=== PATIENT | female | born 1990 | race Caucasian/White ===

== ENCOUNTER → 2020-09-26 08:44 | Outpatient (BNVA) | payer MEDICAID, SELFPAY | PROVIDERS: PCP Internal Medicine; Referring Provider Internal Medicine; Visit Provider Internal Medicine Gastroenterology | DX: K31.84 Gastroparesis (principal); K21.9 Gastro-esophageal reflux disease without esophagitis; R11.0 Nausea; Z79.899 Other long term (current) drug therapy | CPT/HCPCS: 99212 ==

== ENCOUNTER → 2020-11-21 08:24 | Outpatient (BNVA) | payer MEDICAID, SELFPAY | PROVIDERS: PCP Internal Medicine; Visit Provider Internal Medicine Gastroenterology | DX: Z76.89 Persons encountering health services in other specified circumstances (principal) ==

== ENCOUNTER → 2021-01-05 08:47 | Outpatient (BNVA) | payer MEDICAID, SELFPAY | PROVIDERS: PCP Internal Medicine; Visit Provider Internal Medicine Gastroenterology ==

== ENCOUNTER 2021-04-28 11:37 | Outpatient (REF) | payer MEDICAID, SELFPAY ==
--- NOTE | ~2021-04-28 | XR_ITS ---
EXAMINATION: XR FOOT, LEFT CLINICAL INFORMATION: Pain in toes. COMPARISON: None TECHNIQUE: AP, lateral, and oblique views of the left foot. FINDINGS: The bones and soft tissues are normal. No fracture. Alignment is anatomic. Joint spaces are maintained. XR/XR foot LT min 3V IMPRESSION: Normal left foot.
== END 2021-04-28 11:38 | disposition home or self-care (01) ==
LOC: HO.XRAY 11:37
PROVIDERS: PCP Internal Medicine; Visit Provider Internal Medicine
DX: M79.675 Pain in left toe(s) (principal); L60.1 Onycholysis
CPT/HCPCS: 73630

== ENCOUNTER → 2021-07-13 08:42 | Outpatient (BNVA) | payer MEDICAID, SELFPAY | PROVIDERS: PCP Internal Medicine; Visit Provider Internal Medicine Gastroenterology ==

== ENCOUNTER → 2022-04-19 08:33 | Outpatient (BNVA) | payer MEDICAID, SELFPAY | PROVIDERS: PCP Internal Medicine; Visit Provider Internal Medicine Gastroenterology | DX: K21.9 Gastro-esophageal reflux disease without esophagitis (principal) ==

== ENCOUNTER 2022-08-30 11:45 | Outpatient (REF) | payer MEDICAID, SELFPAY ==
[2022-08-30 12:17] LABS: MANUAL DIFF FLAG NO
[2022-08-30 12:38] LABS: Basophils Percent Auto 0.5 % (0-2); Eosinophils Absolute Auto 0.1 X10*3/uL (0.0-0.4); Eosinophils Percent Auto 1.4 % (0-4); Hematocrit 42.4 % (37.0-47.0); Hemoglobin 13.5 g/dl (12.0-16.0); Imm Gran Abs Auto 0.03 X10*3/uL (0.00-0.03); Imm Gran Pct Auto 0.4 % (0.0-0.4); Lymphocytes Absolute Auto 2.5 X10*3/uL (1.2-4.9); Lymphocytes Percent Auto 33.5 % (20-40); Mean Corpuscular HGB Conc 31.8 g/dl (31.0-35.0); Mean Corpuscular Hemoglobin 27.8 pg (27.0-33.0); Mean Corpuscular Volume 87.2 fL (80.0-98.0); Mean Platelet Volume 10.5 fL (9.4-12.3); Monocytes Absolute Auto 0.5 X10*3/uL (0.1-1.2); Monocytes Percent Auto 6.2 % (2-11); Neutrophils Absolute Auto 4.3 x10*3/uL (2.0-8.3); Platelet Count 355 X10*3/uL (160-400); Red Blood Count 4.86 X10*6/uL (4.20-5.50); Red Cell Distribution Width 13.5 % (11.0-16.0); White Blood Count 7.4 X10*3/uL (4.8-10.8)
[2022-08-30 12:45] LABS: Appearance Urine Cloudy; Color Urine Dark Yellow; Glucose Urine UA Negative (Negative); Leukocyte Esterase Urine Moderate (2+) (Negative); Nitrite Urine Negative (Negative); PH 6.5 (5.0-9.0); Specific Gravity - Urine 1.025 (1.005-1.025); UMIC TRIGGER UACC YES; Urine Blood Negative (Negative); Urine Ketones Trace mg/dL (Negative); Urine Protein Trace mg/dL (Neg-Trace)
[2022-08-30 12:50] LABS: Immature Retic Fraction 21.3 % (3.0-15.9); Retic HGB Equivalent 34.5 pg (30.0-35.0); Reticulocytes Absolute 0.097 X10*6/uL (0.026-0.095)
[2022-08-30 12:51] LABS: Bacteria Urine 2+ (None Seen); Hyaline Casts Urine 0-2 /LPF (0-2); UACC Culture Trigger YES; WBC Urine 21-50 /HPF (0-5)
[2022-08-30 13:09] LABS: Anion Gap 14 (12-20); Blood Urea Nitrogen 8 mg/dL (9-16); Calcium 9.5 mg/dL (8.4-10.2); Carbon Dioxide 23 mmol/L (22-29); Chloride 106 mmol/L (96-108); Estimated Glomerular Filt Rate > 60; Glucose Random 93 mg/dL (60-115); Potassium 4.3 mmol/L (3.3-5.1); Sodium 139 mmol/L (135-145)
[2022-08-30 13:14] LABS: Alanine Aminotransferase 20 U/L (0-31); Albumin Level 4.8 g/dL (3.5-5.0); Alkaline Phosphatase 62 U/L (39-117); Anion Gap 15 (12-20); Aspartate Amino Transferase 19 U/L (5-31); Bilirubin Total 0.3 mg/dL (0.0-1.0); Blood Urea Nitrogen 8 mg/dL (9-16); Calcium 9.4 mg/dL (8.4-10.2); Carbon Dioxide 21 mmol/L (22-29); Chloride 106 mmol/L (96-108); Estimated Glomerular Filt Rate > 60; Glucose Random 93 mg/dL (60-115); Iron 54 mcg/dL (30-160); Percent Iron Saturation 14 % (15-50); Potassium 4.3 mmol/L (3.3-5.1); Sodium 138 mmol/L (135-145); Total Iron Binding Capacity 392 mcg/dL (228-428); Total Protein 8.1 g/dL (6.5-8.0); Unsaturated Iron Binding 338 ug/dL
[2022-08-30 13:17] LABS: Ferritin 24 ng/mL (10-122); Vitamin D 25-OH Total 22.9 ng/mL (>30)
[2022-08-30 14:04] LABS: Folate 14.9 ng/mL (> or = 4.0); Vitamin B12 842 pg/mL (200-900)
== END 2022-08-30 11:46 | disposition home or self-care (01) ==
LOC: HO.LAB 11:45
PROVIDERS: Absent Provider Internal Medicine; Visit Provider Internal Medicine Gastroenterology
DX: D50.9 Iron deficiency anemia, unspecified (principal)
CPT/HCPCS: 36415; 80048; 80053; 81001; 82306; 82607; 82728; 82746; 83540; 85025; 85045; 87086; 99212

== ENCOUNTER 2022-11-22 09:54 | Outpatient (REF) | payer MEDICAID, SELFPAY ==
[2022-11-22 12:38] LABS: Estimated Average Glucose 94 mg/dL; Hemoglobin A1c % 4.9 %
[2022-11-22 13:08] LABS: Appearance Urine Cloudy; Color Urine Yellow; Glucose Urine UA Negative (Negative); Leukocyte Esterase Urine Moderate (2+) (Negative); Nitrite Urine Negative (Negative); PH 5.5 (5.0-9.0); Specific Gravity - Urine 1.015 (1.005-1.025); UMIC TRIGGER UA YES; Urine Blood Trace (Negative); Urine Ketones Negative (Negative); Urine Protein Negative (Neg-Trace)
[2022-11-22 13:19] LABS: Anion Gap 13 (12-20); Blood Urea Nitrogen 15 mg/dL (9-16); Calcium 9.5 mg/dL (8.4-10.2); Carbon Dioxide 26 mmol/L (22-29); Chloride 105 mmol/L (96-108); Estimated Glomerular Filt Rate > 60; Glucose Fasting 87 mg/dL (60-99); Insulin 11 uU/mL (2-29); Potassium 4.6 mmol/L (3.3-5.1); Sodium 139 mmol/L (135-145)
[2022-11-22 13:20] LABS: Bacteria Urine 2+ (None Seen); Hyaline Casts Urine 0-2 /LPF (0-2); WBC Urine 21-50 /HPF (0-5)
[2022-11-23 22:43] LABS: Prolactin 4.2 ng/mL
== END 2022-11-22 09:55 | disposition home or self-care (01) ==
LOC: HO.LAB 09:54
PROVIDERS: Absent Provider Internal Medicine; PCP Internal Medicine; Visit Provider Registered Nurse Psychiatric/Mental Health
DX: R35.0 Frequency of micturition (principal); F29 Unspecified psychosis not due to a substance or known physiological condition; Z79.899 Other long term (current) drug therapy; D50.9 Iron deficiency anemia, unspecified; K31.84 Gastroparesis; R11.0 Nausea; K21.9 Gastro-esophageal reflux disease without esophagitis; K59.00 Constipation, unspecified; R10.10 Upper abdominal pain, unspecified
CPT/HCPCS: 36415; 80048; 81001; 83036; 83525; 84146; 99212

== ENCOUNTER 2022-12-12 09:52 | Outpatient (REF) | payer MEDICAID, SELFPAY ==
--- NOTE | ~2022-12-12 | US_ITS ---
EXAMINATION: US ABDOMEN COMPLETE CLINICAL INFORMATION: Abdominal pain. COMPARISON: None TECHNIQUE: Real-time imaging of the abdominal viscera. FINDINGS: PANCREAS: Largely obscured by overlapping bowel gas. ABDOMINAL AORTA: The proximal, mid, and distal segments are normal in caliber. INFERIOR VENA CAVA: Visualized portions are normal. LIVER: There is diffuse increased liver parenchymal echogenicity. No focal hepatic mass is seen. The liver is normal in size and contour. No biliary ductal dilatation. GALLBLADDER: Normal. The gallbladder is physiologically distended without evidence of stones, sludge, polyps, wall thickening or pericholecystic fluid. COMMON BILE DUCT: Normal in caliber measuring 0.25 cm in diameter. RIGHT KIDNEY: Normal. No hydronephrosis. No renal calculi or focal parenchymal lesions. The kidney measures 11.1 cm in maximum dimension. LEFT KIDNEY: Normal. No hydronephrosis. No renal calculi or focal parenchymal lesions. The kidney measures 9.8 cm in maximum dimension. SPLEEN: Normal. The spleen measures 10.6 cm in maximum dimension. FREE FLUID: None. US/US abdomen complete IMPRESSION: 1. There is generalized increase in hepatic echotexture, consistent with fatty infiltration or hepatocellular disease. Please correlate clinically. No focal hepatic mass or intrahepatic biliary dilatation is seen. 2. Technically limited ultrasound examination of the pancreas.
== END 2022-12-12 09:53 | disposition home or self-care (01) ==
LOC: HO.HMGCX 09:52
PROVIDERS: PCP Internal Medicine; Visit Provider Internal Medicine Gastroenterology
DX: R10.10 Upper abdominal pain, unspecified (principal)
CPT/HCPCS: 76700

== ENCOUNTER 2023-03-07 09:16 | Outpatient (REF) | payer MEDICAID, SELFPAY ==
[2023-03-07 10:42] LABS: FIT Int Ctl YES; FIT1 NEGATIVE (NEGATIVE)
== END 2023-03-07 09:17 | disposition home or self-care (01) ==
LOC: HO.LNP 09:16
PROVIDERS: Visit Provider Internal Medicine Gastroenterology
DX: R10.10 Upper abdominal pain, unspecified (principal); K59.00 Constipation, unspecified; D50.9 Iron deficiency anemia, unspecified
CPT/HCPCS: 82274; 99212

== ENCOUNTER 2023-03-20 10:25 | Day surgery (SDC) | payer MEDICAID, SELFPAY ==
--- NOTE | 2023-03-19 12:16 | HO.ANESPROP2 ---
Documented by User: Cami Aponte NP 03/19/23 12:16 HPI - Anesthesia Eval Consult details Narrative: 32yo F for Upper Endoscopy with Balloon Dilitation, Sigmoidoscopy Flexible PMFSH Active Problems Active Problems: All Active Problems (Updated 03/15/23 @ 15:34 by Yanni Macdonald, MARQUIS) Nausea (Acute) Iron deficiency anemia (Acute) Constipation (Acute) Upper abdominal pain (Acute) Dysuria (Acute) Asthma (Acute) Gastroparesis (Acute) GERD without esophagitis (Acute) Anxiety (Acute) Depression (Acute) Environmental allergies (Acute) Past Medical History Medical History Anxiety Asthma Depression Environmental allergies Gastroparesis GERD without esophagitis Family History Family History (Updated 03/07/23 @ 12:07 by Imelda Bustos) Father Alive and well Mother Alive and well Paternal Uncle Esophageal and gastric varices Esophageal cancer Surgical History Surgical History Hx of breast biopsy Hx of breast reconstruction Hx of esophagogastroduodenoscopy Social History Social History Household Members: Family Alcohol intake: never Patient Tobacco Use Status: Never used Tobacco Use of substances other than those prescribed or required for medical reasons: No Are you DNR?: No Advance Directives: No Advance Directives Information Provided: Yes Current occupational status: unemployed Meds Allergies Allergy/AdvReac Type Severity Reaction Status Date / Time Sulfa (Sulfonamide Allergy Unknown muscle Verified 03/19/23 12:45 Antibiotics) aches, dizziness, high fever Home Medications Medication Instructions Recorded Confirmed Last Taken Type benztropine 0.5 mg tablet 0.5 mg PO DAILY 09/26/20 03/15/23 Unknown History clonidine HCl 0.1 mg tablet 0.1 mg PO BEDTIME 09/26/20 03/15/23 Unknown History quetiapine 400 mg tablet,extended 400 mg PO QPM 09/26/20 03/15/23 Unknown History release 24 hr (Seroquel XR) ferrous sulfate 325 mg (65 mg 325 mg PO DAILY 08/30/22 03/15/23 Unknown History iron) tablet Exam Exam Date and Time: March 19, 2023 1216 Pertinent Lab Results Pertinent Lab Results: Laboratory Tests 08/30/22 11/22/22 12:16 11:38 WBC 7.4 Hgb 13.5 Hct 42.4 Plt Count 355 Sodium 139 Potassium 4.6 Chloride 105 Carbon Dioxide 26 BUN 15 Creatinine 0.76 Assessment and Plan Assessment Anesthesia Assessment: Chart Reviewed Documented by User: Xenia Paul MD 03/20/23 12:16 PMFSH Past Medical History Medical History Anxiety Asthma Depression Environmental allergies Gastroparesis GERD without esophagitis Family History Family History (Updated 03/07/23 @ 12:07 by Imelda Bustos) Father Alive and well Mother Alive and well Paternal Uncle Esophageal and gastric varices Esophageal cancer Family history of problems with anesthesia: No Surgical History Surgical History Hx of breast biopsy Hx of breast reconstruction Hx of esophagogastroduodenoscopy History of Problems with Anesthesia: No Social History Social History Household Members: Family Alcohol intake: never Patient Tobacco Use Status: Never used Tobacco Use of substances other than those prescribed or required for medical reasons: No Are you DNR?: No Advance Directives: No Advance Directives Information Provided: Yes Current occupational status: unemployed Meds Allergies Allergy/AdvReac Type Severity Reaction Status Date / Time Sulfa (Sulfonamide Allergy Unknown muscle Verified 03/19/23 12:45 Antibiotics) aches, dizziness, high fever Home Medications Medication Instructions Recorded Confirmed Last Taken Type benztropine 0.5 mg tablet 0.5 mg PO DAILY 09/26/20 03/15/23 Unknown History clonidine HCl 0.1 mg tablet 0.1 mg PO BEDTIME 09/26/20 03/15/23 Unknown History quetiapine 400 mg tablet,extended 400 mg PO QPM 09/26/20 03/15/23 Unknown History release 24 hr (Seroquel XR) ferrous sulfate 325 mg (65 mg 325 mg PO DAILY 08/30/22 03/15/23 Unknown History iron) tablet Exam Airway Mallampati Class: II TM Dist: >3cm Neck ROM: Full Heart: irrr Lungs: cta Assessment and Plan Assessment Anesthesia Assessment: Anesthesia Plan Discussed Final Anesthetic Review Family History of Problems with Anesthesia: No History of Problems with Anesthesia: No NPO: Yes ASA Class: II Final Preanesthetic Review: No Changes in Pt Med Stat, Meds/Allgs Chart Reviewed, Consent Obtained/Reviewed and Anes Risks/Benef Reviewed Patient Risk: Low Procedure Risk: Low Anesthetic Plan Anesthetic Plan: MAC: Disposition: Standard PACU
[2023-03-20 11:10] LABS: UPreg QC Valid YES; Urine Pregnancy NEGATIVE (NEGATIVE)
[2023-03-20 11:34] VITALS: BMI 25.7
[2023-03-20 11:40] VITALS: BP 118/77; PULSE 112; RESP 18; TEMP 35.8; O2SAT 99
[2023-03-20] MEDS: Lactated Ringers 1,000 ML 100 ML IVCONT (11:52)
--- NOTE | 2023-03-20 11:53 | PC.NURSE ---
IV started in right upper arm, not in groin, unable to edit.
[2023-03-20] MEDS: Sodium Phosphate,Mono-Dibasic 133 ML ENEMA PR ×2 (11:55→12:16)
--- NOTE | 2023-03-20 12:01 | MHC.SHP ---
Pre-Procedural Eval Section A Date of Service: 03/20/23 The patient is an INPATIENT: No Changes since office visit: Yes Patient answered all questions; No Cold of Flu in the past 2 weeks, No New Medical Problems and No Changes in Medication The History & Physical has been completed within 30 days and I have reviewed it.: Yes Section B Chief Complaint: Upper abdominal pain, constipation Allergies: Allergies Allergy/AdvReac Type Severity Reaction Status Date / Time Sulfa (Sulfonamide Allergy Unknown muscle Verified 03/19/23 12:45 Antibiotics) aches, dizziness, high fever Plan I have reviewed the history and physical and performed a pertinent physical examination on my patient. No changes have occurred unless specified. Time Spent With Patient Time: Total time managing care of this patient today ____ minutes.
--- NOTE | 2023-03-20 12:36 | W.PM.OPN ---
Operative Note Operative Note Date of Service: 03/20/23 Narrative: FLEXIBLE TRANSORAL UPPER GASTROINTESTINAL ENDOSCOPY WITH BIOPSIES, PYLORIC BALLOON DILATION AND BOTOX INJECTION AND FLEXIBLE SIGMOIDOSCOPY TILL 35 CMS Pre-op diagnosis: Abdominal pain, gastroparesis, rectal bleeding Post-op diagnosis: Gastritis, gastric polyps, gastroparesis.? Endoscopist:? Moira Lang MD Anesthesia:?MAC UPPER ENDOSCOPY Consent: Indications for the procedure and potential complications of bleeding, perforation, reaction to medications and missed diagnosis were discussed with the patient and informed consent was obtained. Instrument: Olympus GIF H 190 mid size upper endoscope Monitoring: Vital signs and clinical assessment, continuous EKG monitoring, Pulse oximetry, Carbon Dioxide monitoring and blood pressure monitoring were done throughout the procedure. Procedure: The patient was placed in the left lateral decubitis position and pre-procedure medications were administered and a bite block was placed. The endoscope was inserted into the mouth and advanced under direct vision to the third part of duodenum. A careful inspection was made as the upper endoscope was withdrawn including a retroflexed examination of the proximal stomach; Findings and interventions are described below. Findings: Larynx: Normal Esophagus: GE junction at 33 cms. No esophagitis or Carey's. Stomach: A 4-5 mm benign appearing polyp in the gastric body - biopsied. Mild gastric erythema. Biopsies were obtained. Balloon dilation of pylorus was performed with an 18 mm CRE balloon x 60 seconds. Botox 100 Units was injected in the pyloric sphincter (25 units in each quadrant) Grade 2 flap valve on retroflexed examination of the cardia. Duodenum: Normal bulb and descending duodenum. Biopsies were obtained from 3rd part of the duodenum to check for celiac sprue. Intervention: Biopsies as noted above FLEXIBLE SIGMOIDOSCOPY PROCEDURE NOTE Consent: Indications for the procedure and potential complications of bleeding, perforation, reaction to medications and missed diagnosis were discussed with the patient and informed consent was obtained. Instrument: Olympus PCF H 190 L variable stiffness pediatric colonoscope Monitoring: Vital signs and clinical assessment, intermittent blood pressure monitoring, continuous EKG monitoring, Pulse oximetry and Carbon Dioxide monitoring were done throughout the procedure. Procedure: The patient was placed in the left lateral decubitis position and pre-procedure medications were administered. After a digital rectal examination of the ano-rectum, the video colonoscope was inserted into the rectum and advanced to 35 cms into the sigmoid colon. The colonoscope was slowly withdrawn in a retrograde panoramic fashion and the colon mucosa was carefully examined including a retroflexed view of the rectum. Findings and interventions are described below. Findings: Sigmoid Colon: A 2 cms sessile (adenomatous appearing) polyp at 35 cms. Two 12 to 15 mm sessile polyps at 30 cms Rectum: Normal Ano-rectum: Moderate non-bleeding internal hemorrhoids Colon preparation: Excellent Impression and Post Procedure Diagnosis: Endoscopy Findings: STOMACH: Mild gastric erythema and a benign appearing gastric polyp. Balloon dilation of pylorus was performed with an 18 mm CRE balloon x 60 seconds. Botox 100 Units was injected in the pyloric sphincter (25 units in each quadrant) DUODENUM: Normal - biopsied to check for celiac sprue Colonoscopy Findings: Three medium sized polyps in the sigmoid colon - not removed since pt was not prepped. Moderate hemorrhoids on retroflexed exam. Plan: Await pathology results Patient has an appointment on 05/09/23 in the GI Clinic with Moira Lang M.D. Pt will be scheduled for a full colonoscopy for removal of colon polyps. Above findings were reviewed with the patient and colon polyps and handouts were given in the discharge area BIOPSIES SHOWED: A.? Small bowel, biopsy:? Small bowel mucosa with preserved villi and no specific change; no evidence of celiac disease. B.? Gastric antrum, biopsy:? Gastric antral mucosa with congestion and minimal chronic inactive gastritis; negative for H pylori, intestinal metaplasia and dysplasia. C. Gastric polyp:? Fundic gland polyp with minimal chronic inactive gastritis; negative for H pylori, intestinal metaplasia and dysplasia.?
--- NOTE | 2023-03-20 12:37 | PC.NURSE ---
fleets x2 results solid brown
--- NOTE | 2023-03-20 13:21 | P.CONAN_ITS ---
HPI - Anesthesia Eval Consult details Narrative: gerd screening [facility] Active Problems Active Problems: All Active Problems (Updated 03/15/23 @ 15:34 by Yanni Macdonald, MARQUIS) Nausea (Acute) Iron deficiency anemia (Acute) Constipation (Acute) Upper abdominal pain (Acute) Dysuria (Acute) Asthma (Acute) Gastroparesis (Acute) GERD without esophagitis (Acute) Anxiety (Acute) Depression (Acute) Environmental allergies (Acute) Past Medical History Medical History Anxiety Asthma Depression Environmental allergies Gastroparesis GERD without esophagitis Family History Family History (Updated 03/07/23 @ 12:07 by Imelda Bustos) Father Alive and well Mother Alive and well Paternal Uncle Esophageal and gastric varices Esophageal cancer Family history of problems with anesthesia: No Surgical History Surgical History Hx of breast biopsy Hx of breast reconstruction Hx of esophagogastroduodenoscopy History of Problems with Anesthesia: No Social History Social History Household Members: Family Alcohol intake: never Patient Tobacco Use Status: Never used Tobacco Use of substances other than those prescribed or required for medical reasons: No Are you DNR?: No Advance Directives: No Advance Directives Information Provided: Yes Current occupational status: unemployed Meds Allergies Allergy/AdvReac Type Severity Reaction Status Date / Time Sulfa (Sulfonamide Allergy Unknown muscle Verified 03/19/23 12:45 Antibiotics) aches, dizziness, high fever Active Medications: Current Medications Albuterol Sulfate (Albuterol Sulfate (0.083%) 2.5 Mg/3 Ml Vial.Neb) 2.5 mg INHALE ONCE PRN PRN Reason: Shortness of Breath/Wheezing Lactated Ringer's (Lr) 1,000 mls @ 100 mls/hr IVCONT .Q10H RAFITA Last Admin: 03/20/23 11:52 Dose: 100 mls/hr Sodium Biphosphate/Sodium Phosphate (Sodium Phosphate,Arenac-Dibasic 133 Ml Enema) 133 ml UT ONCE PRN PRN Reason: Pre-Op Surgical Prep Last Admin: 03/20/23 11:55 Dose: 133 ml Sodium Biphosphate/Sodium Phosphate (Sodium Phosphate,Arenac-Dibasic 133 Ml Enema) 133 ml UT ONCE PRN PRN Reason: Pre-Op Surgical Prep Last Admin: 03/20/23 12:16 Dose: 133 ml Home Medications Medication Instructions Recorded Confirmed Last Taken Type benztropine 0.5 mg tablet 0.5 mg PO DAILY 09/26/20 03/15/23 Unknown History clonidine HCl 0.1 mg tablet 0.1 mg PO BEDTIME 09/26/20 03/15/23 Unknown History quetiapine 400 mg tablet,extended 400 mg PO QPM 09/26/20 03/15/23 Unknown History release 24 hr (Seroquel XR) ferrous sulfate 325 mg (65 mg 325 mg PO DAILY 08/30/22 03/15/23 Unknown History iron) tablet Exam Exam Date and Time: March 20, 2023 1321 Height,Weight and Vital Signs: Height 5 ft 6 in Weight 72.121 kg Last Vital Signs Temp 96.4 F L 03/20/23 11:40 Pulse 112 H 03/20/23 11:40 Resp 18 03/20/23 11:40 BP 118/77 03/20/23 11:40 Pulse Ox 99 03/20/23 11:40 O2 Del Method Room Air 03/20/23 11:40 Pertinent Lab Results Pertinent Lab Results: Laboratory Tests 03/20/23 11:00 Urine Test NEGATIVE Airway Mallampati Class: I TM Dist: >3cm Neck ROM: Full Heart: rr Lungs: cta Assessment and Plan Assessment Anesthesia Assessment: Anesthesia Plan Discussed and Chart Reviewed Final Anesthetic Review Family History of Problems with Anesthesia: No History of Problems with Anesthesia: No NPO: Yes ASA Class: I and II Final Preanesthetic Review: No Changes in Pt Med Stat, Meds/Allgs Chart Reviewed, Consent Obtained/Reviewed and Anes Risks/Benef Reviewed Patient Risk: Low Procedure Risk: Low Anesthetic Plan Anesthetic Plan: MAC: Disposition: Standard PACU
[2023-03-20 13:33] VITALS: BP 104/63; PULSE 103; RESP 15; TEMP 37.5; O2SAT 99
[2023-03-20 13:48] VITALS: BP 108/67; PULSE 90; RESP 16; O2SAT 99
[2023-03-20 14:03] VITALS: BP 117/77; PULSE 87; RESP 19; O2SAT 99
[2023-03-20 14:18] VITALS: BP 125/68; PULSE 89; RESP 17; TEMP 37.1; O2SAT 99
== END 2023-03-20 15:08 | disposition home or self-care (01) ==
PROVIDERS: Nurse Practitioner; PCP Internal Medicine; Visit Provider Internal Medicine Gastroenterology
PROC: (CPT 45330; principal; 2023-03-20 11:40)
PROC: 0DJD8ZZ Inspection of Lower Intestinal Tract, Via Natural or Artificial Opening Endoscopic (ICD-10-PCS; CPT 45330; 2023-03-20 11:40)
DX: K62.5 Hemorrhage of anus and rectum (principal); K63.5 Polyp of colon; K57.30 Diverticulosis of large intestine without perforation or abscess without bleeding; K64.8 Other hemorrhoids; K59.00 Constipation, unspecified; K21.9 Gastro-esophageal reflux disease without esophagitis; R10.10 Upper abdominal pain, unspecified; D50.9 Iron deficiency anemia, unspecified; K31.84 Gastroparesis; K31.7 Polyp of stomach and duodenum; K29.50 Unspecified chronic gastritis without bleeding; J45.909 Unspecified asthma, uncomplicated; F41.1 Generalized anxiety disorder; F32.A Depression, unspecified; Z79.899 Other long term (current) drug therapy; Z88.2 Allergy status to sulfonamides
CPT/HCPCS: 45330; 43245; 43236; 43239; 81025; 88305; 88342; C1726; J0585

== ENCOUNTER → 2023-05-16 10:30 | Outpatient (BNVA) | payer MEDICAID, SELFPAY | PROVIDERS: PCP Internal Medicine; Visit Provider Internal Medicine Gastroenterology | DX: K21.9 Gastro-esophageal reflux disease without esophagitis (principal); K59.00 Constipation, unspecified; K31.84 Gastroparesis; D50.9 Iron deficiency anemia, unspecified; R11.0 Nausea | CPT/HCPCS: 99212 ==

== ENCOUNTER 2023-06-25 13:30 | Outpatient (REF) | payer MEDICAID, SELFPAY ==
[2023-06-25 18:38] LABS: CT PCR NOT DETECTED (Not Detect.); NG PCR NOT DETECTED (Not Detect.)
== END 2023-06-25 13:31 | disposition home or self-care (01) ==
LOC: HO.CHCLNP 13:30
PROVIDERS: Visit Provider Pediatrics
DX: Z01.419 Encounter for gynecological examination (general) (routine) without abnormal findings (principal)
CPT/HCPCS: 0353U; 88142

== ENCOUNTER 2023-07-15 12:32 | Day surgery (SDC) | payer MEDICAID, SELFPAY ==
--- NOTE | 2023-07-12 13:32 | HO.ANESPROP2 ---
Documented by User: Cami Aponte NP 07/12/23 13:33 HPI - Anesthesia Eval Consult details Narrative: 32yo F for Colonoscopy PMFSH Active Problems Active Problems: All Active Problems (Updated 03/15/23 @ 15:34 by Yanni Macdonald, MARQUIS) Nausea (Acute) Iron deficiency anemia (Acute) Constipation (Acute) Upper abdominal pain (Acute) Dysuria (Acute) Asthma (Acute) Gastroparesis (Acute) GERD without esophagitis (Acute) Anxiety (Acute) Depression (Acute) Environmental allergies (Acute) Past Medical History Medical History Anxiety Asthma Depression Environmental allergies Gastroparesis GERD without esophagitis Hx of flexible sigmoidoscopy Family History Family History Father Alive and well Mother Alive and well Paternal Uncle Esophageal and gastric varices Esophageal cancer Family history of problems with anesthesia: No Surgical History Surgical History Hx of breast biopsy Hx of breast reconstruction Hx of esophagogastroduodenoscopy History of Problems with Anesthesia: No Social History Social History Household Members: Family Alcohol intake: never Patient Tobacco Use Status: Never used Tobacco Are you DNR?: No Advance Directives: No Advance Directives Information Provided: Yes Nutrition Risks: No Nutritional Risk FDLMP: two weeks ago Current occupational status: unemployed Meds Allergies Allergy/AdvReac Type Severity Reaction Status Date / Time Sulfa (Sulfonamide Allergy Unknown muscle Verified 07/15/23 12:50 Antibiotics) aches, dizziness, high fever Home Medications Medication Instructions Recorded Confirmed Last Taken Type benztropine 0.5 mg tablet 0.5 mg PO DAILY 09/26/20 07/15/23 Unknown History clonidine HCl 0.1 mg tablet 0.1 mg PO BEDTIME 09/26/20 07/15/23 Unknown History quetiapine 400 mg tablet,extended 400 mg PO QPM 09/26/20 07/15/23 Unknown History release 24 hr (Seroquel XR) Exam Exam Date and Time: July 12, 2023 1332 Assessment and Plan Assessment Anesthesia Assessment: Chart Reviewed Final Anesthetic Review Family History of Problems with Anesthesia: No History of Problems with Anesthesia: No Documented by User: Deepa Rdz MD 07/15/23 14:35 PMFSH Active Problems Active Problems: All Active Problems (Updated 07/15/23 @ 13:59 by Deepa Rdz MD) Nausea (Acute) Iron deficiency anemia (Acute) Constipation (Acute) Upper abdominal pain (Acute) Dysuria (Acute) Asthma (Acute) Gastroparesis (Acute) GERD without esophagitis (Acute) Anxiety (Acute) Depression (Acute) Environmental allergies (Acute) Past Medical History Medical History Anxiety Asthma Depression Environmental allergies Gastroparesis GERD without esophagitis Hx of flexible sigmoidoscopy Family History Family History Father Alive and well Mother Alive and well Paternal Uncle Esophageal and gastric varices Esophageal cancer Surgical History Surgical History Hx of breast biopsy Hx of breast reconstruction Hx of esophagogastroduodenoscopy Social History Social History Household Members: Family Alcohol intake: never Patient Tobacco Use Status: Never used Tobacco Are you DNR?: No Advance Directives: No Advance Directives Information Provided: Yes Nutrition Risks: No Nutritional Risk FDLMP: two weeks ago Current occupational status: unemployed Meds Allergies Allergy/AdvReac Type Severity Reaction Status Date / Time Sulfa (Sulfonamide Allergy Unknown muscle Verified 07/15/23 12:50 Antibiotics) aches, dizziness, high fever Home Medications Medication Instructions Recorded Confirmed Last Taken Type benztropine 0.5 mg tablet 0.5 mg PO DAILY 09/26/20 07/15/23 Unknown History clonidine HCl 0.1 mg tablet 0.1 mg PO BEDTIME 09/26/20 07/15/23 Unknown History quetiapine 400 mg tablet,extended 400 mg PO QPM 09/26/20 07/15/23 Unknown History release 24 hr (Seroquel XR) Exam Height,Weight and Vital Signs: Height 5 ft 2 in Weight 72.575 kg Vital Signs Temp Pulse Resp BP Pulse Ox O2 Del Method 07/15/23 12:58 97.9 F 100 18 125/80 99 Room Air Pertinent Lab Results Pertinent Lab Results: Lab Results 07/15/23 Range/Units 12:15 Urine Test NEGATIVE (NEGATIVE) Airway Mallampati Class: I TM Dist: >3cm Neck ROM: Full Loose/Missing/Broken Teeth: No (Denies broken, loose or missing teeth) Heart: RRR Lungs: CTAB Assessment and Plan Assessment Anesthesia Assessment: Anesthesia Plan Discussed Final Anesthetic Review NPO: Yes ASA Class: III Final Preanesthetic Review: No Changes in Pt Med Stat, Meds/Allgs Chart Reviewed, Consent Obtained/Reviewed and Anes Risks/Benef Reviewed Patient Risk: Intermediate Procedure Risk: Low Assessment/Block/Sedation in SS: Assess/Block/Sedation-SS Anesthetic Plan Anesthetic Plan: MAC: Disposition: Standard PACU
[2023-07-15 08:37] VITALS: BMI 29.3
[2023-07-15] MEDS: Lactated Ringers 1,000 ML 100 ML IVCONT (12:57)
[2023-07-15 12:58] VITALS: BP 125/80; PULSE 100; RESP 18; TEMP 36.6; O2SAT 99
[2023-07-15 13:01] LABS: UPreg QC Valid YES; Urine Pregnancy NEGATIVE (NEGATIVE)
--- NOTE | 2023-07-15 13:34 | MHC.SHP ---
Pre-Procedural Eval Section A Date of Service: 07/15/23 The patient is an INPATIENT: No Section B Chief Complaint: polyps on flex sig Relevant Family History (Specify if Yes): Yes Relevant Social History: None Present Medications: see Short Stay Collaborative assessment Medical History: Significant History (Asthma Depression Environmental allergies Gastroparesis GERD without esophagitis) History of Previous Operations: Relevant previous surgery/procedure and date(s) (Hx of breast biopsy Hx of breast reconstruction Hx of esophagogastroduodenoscopy) Allergies: Allergies Allergy/AdvReac Type Severity Reaction Status Date / Time Sulfa (Sulfonamide Allergy Unknown muscle Verified 07/15/23 12:50 Antibiotics) aches, dizziness, high fever Review of Systems Sugical H&P ROS: Negative: Constitution, Cardiovascular, Respiratory and Gastrointestinal Exam Surgical H&P Exam: Normal: Heart, Normal: Lungs, Normal: Extremities and Normal: Abdomen Plan Diagnosis/Plan: Unchanged I have reviewed the history and physical and performed a pertinent physical examination on my patient. No changes have occurred unless specified. Time Spent With Patient Time: Total time managing care of this patient today ____ minutes.
[2023-07-15] MEDS: ondansetron HCL 4 MG/2 ML VIAL IVPUSH (14:21)
[2023-07-15] MEDS: Metoclopramide HCl 10 MG/2 ML VIAL IVPUSH (14:21)
--- NOTE | 2023-07-15 14:23 | P.OP_ITS ---
Operative Note Operative Note Date of Service: 07/15/23 Narrative: COLONOSCOPY TILL CECUM WITH SNARE POLYPECTOMY Pre-op diagnosis: Screening, polyps on flex sigmoidoscopy Post-op diagnosis:? Colon polyps, diverticulosis, hemorrhoid Endoscopist:? Moira Lang MD Anesthesia:?MAC Consent: Indications for the procedure and potential complications of bleeding, perforation, reaction to medications and missed diagnosis were discussed with the patient and informed consent was obtained. Instrument: Olympus PCF H 190 L variable stiffness pediatric colonoscope and adult variable stiffness colonoscope Monitoring: Vital signs and clinical assessment, intermittent blood pressure monitoring, continuous EKG monitoring, Pulse oximetry and Carbon Dioxide monitoring were done throughout the procedure. Please see anesthesia flowsheet. Colon withdrawl time was 25 minutes. Procedure: The patient was placed in the left lateral decubitis position and pre-procedure medications were administered. After a digital rectal examination of the ano-rectum, the video colonoscope was inserted into the rectum and advanced through the colon to the cecum. The colonoscope was slowly withdrawn in a retrograde panoramic fashion and the colon mucosa was carefully examined including a retroflexed view of the rectum. Findings and interventions are described below. Procedure Difficulty: colon was long and tortuous and there was recurrent loop formation. Patient was placed in the supine position and LLQ pressure was applied to intubate the ascending colon/cecum Findings: Terminal Ileum: Not evaluated Cecum: Normal Ascending Colon: Normal Transverse Colon: Normal Descending Colon: Normal Sigmoid Colon: A 2 cms sessile polyp at 30 cms - removed with a hot snare. Two 10-12 mm sessile polyps at 25 cms - removed with a hot snare. Some bleeding noted at 1 of the polypectomy sites - treated with cautery using the snare tip. Moderate diverticulosis Rectum: Normal Ano-rectum: Small internal hemorrhoids Colon preparation: Good Impression and Post Procedure Diagnosis: Colonoscopy Findings: Three medium sized polyps removed Moderate diverticulosis seen in the sigmoid colon Small hemorrhoids on retroflexed exam. Plan: Await pathology results Patient has an appointment on 08/01/23 in the GI Clinic with Moira Lang M.D.. Repeat Colonoscopy interval based on path results - in 3 years if polyps are adenomatous and 10 years if polyps are hyperplastic. (adult colonoscopy for future colonoscopies) Above findings were reviewed with the patient and colon polyps and diverticulosis handouts were given in the discharge area BIOPSIES SHOWED: A.? Colon, sigmoid at 30 cm, polyp:? Tubular adenoma; negative for high-grade dysplasia and carcinoma. B.? Colon, sigmoid at 25 cm, polyps:? Tubular adenomas, two; negative for high- grade dysplasia and carcinoma.
[2023-07-15 15:36] VITALS: BP 120/68; PULSE 108; RESP 16; TEMP 36.6; O2SAT 98
[2023-07-15 15:51] VITALS: BP 113/50; PULSE 95; RESP 16; O2SAT 99
[2023-07-15 15:59] VITALS: BP 108/60; PULSE 88; RESP 16; TEMP 36.8; O2SAT 99
== END 2023-07-15 16:15 | disposition home or self-care (01) ==
PROVIDERS: Nurse Practitioner; PCP Pediatrics; Visit Provider Internal Medicine Gastroenterology
PROC: 0DJD8ZZ Inspection of Lower Intestinal Tract, Via Natural or Artificial Opening Endoscopic (ICD-10-PCS; CPT 45378; principal; 2023-07-15 14:20)
DX: Z12.11 Encounter for screening for malignant neoplasm of colon (principal); Z86.010 Personal history of colon polyps; D12.5 Benign neoplasm of sigmoid colon; K57.30 Diverticulosis of large intestine without perforation or abscess without bleeding; K31.84 Gastroparesis; D50.9 Iron deficiency anemia, unspecified; K64.8 Other hemorrhoids; K21.9 Gastro-esophageal reflux disease without esophagitis; J45.909 Unspecified asthma, uncomplicated; F32.A Depression, unspecified; F41.1 Generalized anxiety disorder; Z79.899 Other long term (current) drug therapy; Z88.2 Allergy status to sulfonamides
CPT/HCPCS: 45385; 81025; 88305; J2405; J2765

== ENCOUNTER → 2023-07-15 12:32 | Outpatient (BNV) | payer MEDICAID, SELFPAY | PROVIDERS: PCP Pediatrics; Visit Provider Internal Medicine Gastroenterology | DX: Z12.11 Encounter for screening for malignant neoplasm of colon (principal); D12.5 Benign neoplasm of sigmoid colon; K57.30 Diverticulosis of large intestine without perforation or abscess without bleeding; K64.8 Other hemorrhoids | CPT/HCPCS: 45385 ==

== ENCOUNTER 2023-08-01 13:21 | Outpatient (AMB) | payer MEDICAID, SELFPAY ==
[2023-08-01 13:28] VITALS: PULSE 107; RESP 14
--- NOTE | 2023-08-01 13:28 | A.OFFVIS_ITS ---
Intake Vital Signs 08/01/23 13:28 Respiration 14 Pulse 107 H Intake Visit Reasons: S/P Waldo; Dr. Lang Intake Note: Patient follow up for Colonoscopy results. Patient cc: constipation, and low back pain, patient stop linzess because she was having BM accident, denies any other GI issues. 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 Lang HPI Details GI clinic visit for this 32-year-old female for FU of GERD and discuss colon results. Pt is a special needs person. ?CHRONIC ILLNESSES:?asthma, gastroesophageal reflux disease (GERD), environmental allergies, depression, anxiety ? IMAGING STUDIES: 12/12/22 ABD US SHOWED: 1. There is generalized increase in hepatic echotexture, consistent with fatty infiltration or hepatocellular disease. Please correlate clinically. No focal hepatic mass or intrahepatic biliary dilatation is seen. 2. Technically limited ultrasound examination of the pancreas. 03/31/20 GASTRIC EMPTYING STUDY SHOWED: ? FINDINGS: ? 1 hour 98% (normal 37%-90%) ? 2 hours 94% (normal 30%-60%) ? 3 hours 76% ? 4 hours 68% (normal 0%-10%) ENDOSCOPIC STUDIES: 07/15/23 COLONOSCOPY SHOWED: Three medium sized polyps removed Moderate diverticulosis seen in the sigmoid colon Small hemorrhoids on retroflexed exam. Plan: Repeat Colonoscopy interval based on path results - in 3 years if polyps are adenomatous and 10 years if polyps are hyperplastic. (adult colonoscopy for future colonoscopies) Above findings were reviewed with the patient and colon polyps and diverticulosis handouts were given in the discharge area BIOPSIES SHOWED: A.? Colon, sigmoid at 30 cm, polyp:? Tubular adenoma; negative for high-grade d ysplasia and carcinoma. B.? Colon, sigmoid at 25 cm, polyps:? Tubular adenomas, two; negative for high- grade dysplasia and carcinoma. 03/20/23 EGD AND FLEX SIGMOIDOSCOPY SHOWED: Endoscopy Findings: STOMACH:?Mild gastric erythema and a benign appearing gastric polyp. Balloon dilation of pylorus was performed with an 18 mm CRE balloon x 60 seconds. Botox 100 Units was injected in the pyloric sphincter (25 units in each quadrant) DUODENUM: Normal - biopsied to check for celiac sprue Colonoscopy Findings: Three medium sized polyps in the sigmoid colon - not removed since pt was not prepped. Moderate hemorrhoids on retroflexed exam. Plan:? Pt will be scheduled for a full colonoscopy for removal of colon polyps. Above findings were reviewed with the patient and colon polyps and? handouts were given in the discharge area BIOPSIES SHOWED: A.? Small bowel, biopsy:? Small bowel mucosa with preserved villi and no specific change; no evidence of celiac disease. B.? Gastric antrum, biopsy:? Gastric antral mucosa with congestion and minimal chronic inactive gastritis; negative for H pylori, intestinal metaplasia and dysplasia. C. Gastric polyp:? Fundic gland polyp with minimal chronic inactive gastritis; negative for H pylori, intestinal metaplasia and dysplasia.? EGD-12/24/[address] PRAKASH: ? Esophagus: GE junction at 35 cm. No esophagitis or Carey s. Random esophageal bx taken ? Stomach: Streaky gastric erythema at antrum. Biopsies were obtained. Grade 2 flap ? valve on retroflexed examination of the cardia. The pylorus seemed tight so it ? was stretched with 18 mm balloon, there was also retained food noted. ? Duodenum: Normal bulb and descending duodenum, bx taken ? BIOPSIES SHOWED: ? A. Duodenum, biopsies: Duodenal mucosa with no significant histopathology; no villous ? abnormality identified; no increase in intraepithelial lymphocytes. ? B. Stomach, biopsies: Gastric mucosa with moderate chronic, inactive gastritis; negative for Helicobacter pylori organisms; negative for intestinal metaplasia; negative for dysplasia. ? C. Esophagus, random, biopsies: Fragments of squamous epithelium within normal limits. ??TODAY'S VISIT Colon results reviewed. Doing well. Notes rectal bleeding when she has her periods Has constipation and notes bleeding when she strains Has small BMs with straining with incomplete evacuation Linzess was causing diarrhea and she stopped taking it - advised to take a lower dose of Linzess PAST VISIT: She noted improvement in her symptoms after EGD, botox injection and pyloric balloon dilation Had another episode of rectal bleeding 2 weeks after her procedures Willing to have a colonoscopy Has nausea and vomiting when she has migraine ALLEN Takes acetaminophen which does not help - pt advised to discuss with her PCP. Has constipation and has a BM 1-2 times a week. (sister has the same problem) Takes Linzess and Senna. Patient cc: constipation, and low back pain, patient stop linzess because she was having BM accident, denies any other GI issues. Pain is pressure like and comes and goes. Pain lasts for an hour. Medicatons help with the heartburn and not with the abdominal pain. She has been using the Linzess and kept pooping a lot of water (also had the flu that day) Has been peeing a lot - urinates every hour and thinks she has an overactive bladder. Notes some nausea and denies vomiting. Takes Senna every night and has a BM every few days and sometimes once a week. Notes some bloating. Denies any change in abd pain after a BM or passing gas. Getting hungry a lot and has been eating. She is always hungry. Has anemia due to menstrual blood loss and is used to feeling dizzy ? Intermittent painless rectal bleeding - blood is bright red. Admits to a hx of hemorrhoids. Had COVID a few months ago - breathing problems, fluid in her lungs and brain fog - recovered. Continues to have indigestion. Notes abd pain if she takes iron without food. Has a BM 1-2 times - denies hard stools or straining. Intermittent gas and bloating. Prescribed Ferrous sulfate by her PCP. Notes some indigestion and upset stomach due to iron. She was prescribed a stool softener as well. Pt denies heavy periods - her Mom reported her periods are heavy. Denies black stools or blood in stools. Intermittent constipation improved with stool softeners ? ? ? Feeling good and eating OK ? ? ? Appetite is good and weight is stable. ?? ? Denies nausea. Spoke to Ada and her step Mom. ? Medication is working but not a 100%. ? Has nausea which comes and goes. ? Thought she was getting better. ? Can have regurgitation of food. ? Tried taking heavier food and noted worsening symptoms ? Was doing a lot better with small meals. ? Taking smoothies ? Thinks she has been loosing weight and clothes. ? Weighs 145 lbs (decreased from 156 lbs in Jan 2020). ? GES results were reviewed with the patient and her stepmom. ? Having GI problems for a long time. ? Has been having recurrent post prandial nausea and an episode of vomiting a few fibres. ? Doing good. Feels symptoms are 75% better. ? Still has some nausea and abdominal pain ? Sometimes has regurgitation of food after a meal when her stomach is full. ? Can have symptoms in the middle of the day. ? Complains of early satiety. ? Has been loosing weight PFSH Medical History (Updated 08/01/23 @ 14:16 by Moira Lang MD) Anxiety Asthma Depression Environmental allergies Gastroparesis GERD without esophagitis Hx of flexible sigmoidoscopy Surgical History Hx of breast biopsy Hx of breast reconstruction Hx of colonoscopy Hx of esophagogastroduodenoscopy Family History Father Alive and well Mother Alive and well Paternal Uncle Esophageal and gastric varices Esophageal cancer Social History Household Members: Family Alcohol intake: never Patient Tobacco Use Status: Never used Tobacco Current occupational status: unemployed Review of Systems Const All systems reviewed & are unremarkable except as noted in HPI and below Physical Exam Vital Signs: BMI result Body Mass Index 28.1 Const General: healthy appearing and no acute distress Nutritional Appearance: average body habitus Orientation/consciousness: patient oriented x3 Limitations: no limitations HEENT Head: Yes normal to inspection Ears: hearing grossly normal bilaterally Eyes Sclerae: sclerae normal Pupils: Equal, round and reactive pupils present Neck Neck: Yes normal visual inspection Chest Chest palpation & inspection: normal inspection of the chest Resp Effort & Inspection: normal respiratory effort Auscultation: clear to auscultation bilaterally Cardio Palpation: normal PMI Rate: regular rate Rhythm: regular rhythm Heart sounds: S1 normal heart sound present, S2 normal heart sound present and no murmurs GI Palpation (GI): Soft to palpation, nontender and No hepatosplenomegaly present Auscultation: normal bowel sounds Rectal Exam - Female: deferred Skin General skin exam: no rashes or lesions noted Neuro General: patient oriented x3, gait normal and moves all extremities Cranial nerves: Yes Equal, round and reactive pupils present Psych Appearance: grossly normal Mental Status: mental status grossly normal Assessment & Plan Assessment & Plan (1) Nausea: Code(s): R11.0 - Nausea (2) Iron deficiency anemia: Code(s): D50.9 - Iron deficiency anemia, unspecified (3) Constipation: Code(s): K59.00 - Constipation, unspecified (4) Upper abdominal pain: Code(s): R10.10 - Upper abdominal pain, unspecified (5) Gastroparesis: Code(s): K31.84 - Gastroparesis (6) GERD without esophagitis: Code(s): K21.9 - Gastro-esophageal reflux disease without esophagitis (7) Migraine headache: Comment: Prescribed low dose Imitrex for migraine HAs Code(s): G43.909 - Migraine, unspecified, not intractable, without status migrainosus Plan 32 YF with special needs, asthma, gastroesophageal reflux disease (GERD), envi ronmental allergies, depression, anxiety followed in GI for symptoms of heartburn, early satiety and intermittent postprandial regurgitation. 12/24/19 EGD showed gastritis with a tight pylorus which was dilated with an 18 mm balloon. Small bowel and esophageal biopsies were normal. Gastric biopsies were negative for H pylori. Patient notes partial improvement in her symptoms since EGD with balloon dilation of pylorus was performed. Gastric emptying study showed Gastroparesis. Patient was advised to switch omeprazole from bedtime to 20-30 minutes before breakfast and take 5-6 small meals a day in the interim. Continue Metoclopramide 5 mg twice daily before lunch and dinner. Patient handout on gastroparesis was mailed to the patient with her after visit summary at the time of a previous visit. Pt noted increased symptoms after Thanksgiving which have improved. 11/22/22 Pt complains of intermittent upper abdominal pain. She was advised further evaluation with an abd US 03/2023 EGD with pyloric Botox injection and repeat balloon dilation was performed. (OF note - pt reports getting hungry a lot and has been eating) Same day flexible sigmoidoscopy showed adenomatous appearing polyps in the left colon (Of note stool FIT test was negative in 01/2023). To take Linzess 145 mcg every other day for constipation 07/2023 colonoscopy was performed and findings as noted above 08/01/23 Pt stopped Linzess due to diarrhea - prescribed a lower dose of 72 mcg daily Prescribed low dose Imitrex for migraine HAs Follow-up appointment in 4 months Medications: New linaclotide (Linzess) 72 mcg PO QAM 30 days 30 caps 3RF K59.09 - Other constipation cholecalciferol (vitamin D3) 250 mcg PO 2XW 90 days 26 caps 1RF E55.9 - Vitamin D deficiency, unspecified sumatriptan succinate (Imitrex) do not exceed 6 doses per 24 hrs 25 mg PO Q2-4H 60 days PRN 20 tabs 1RF migraine headache G43.909 - Migraine, unspecified, not intractable, without status migrainosus Discontinued linaclotide (Linzess) Discontinued Reason: Ancillary Entered New Order 145 mcg PO QAM 30 days 30 caps 3RF K59.00 - Constipation, unspecified Coding Level of Care Code Est Pt Level 4 (88319) Diagnoses Nausea R11.0 Iron deficiency anemia D50.9 Constipation K59.00 Upper abdominal pain R10.10 Gastroparesis K31.84 GERD without esophagitis K21.9 Migraine headache G43.909 Time Spent (min) 23
== END 2023-08-01 14:03 | disposition home or self-care (01) ==
PROVIDERS: PCP Internal Medicine; Visit Provider Internal Medicine Gastroenterology
DX: R11.0 Nausea (principal); D50.9 Iron deficiency anemia, unspecified; K59.00 Constipation, unspecified; R10.10 Upper abdominal pain, unspecified; K31.84 Gastroparesis; K21.9 Gastro-esophageal reflux disease without esophagitis; G43.909 Migraine, unspecified, not intractable, without status migrainosus
CPT/HCPCS: 99214

== ENCOUNTER → 2023-08-01 13:21 | Outpatient (BNVA) | payer MEDICAID, SELFPAY | PROVIDERS: PCP Internal Medicine; Visit Provider Internal Medicine Gastroenterology | DX: R11.0 Nausea (principal); K59.00 Constipation, unspecified; R10.10 Upper abdominal pain, unspecified; D50.9 Iron deficiency anemia, unspecified; K31.84 Gastroparesis; K21.9 Gastro-esophageal reflux disease without esophagitis; G43.909 Migraine, unspecified, not intractable, without status migrainosus | CPT/HCPCS: 99212 ==

== ENCOUNTER 2023-12-26 10:39 | Outpatient (AMB) | payer MEDICAID, SELFPAY ==
--- NOTE | 2023-12-26 10:42 | A.OFFVIS_ITS ---
Intake Vital Signs 12/26/23 10:47 12/26/23 11:27 Height 5 ft 6 in Weight 167 lb 8.821 oz BMI 27.0 BP 74/53 L 105/66 Blood Pressure Location Lt brachial Lt brachial Position Sitting Sitting Pulse 101 H Intake Visit Reasons: 4 month follow up Intake Note: Marcella presents in the office as a 4 month follow up. CC: She states that she had COVID a couple weeks ago. She states that she had a bad stomach pains and nausea and she has been okay since. She is making herself eat but something still does not feel right. Allergies Sulfa (Sulfonamide Antibiotics) Allergy (Unknown, Verified 12/26/23 10:48) muscle aches, dizziness, high fever Medication List - Last Reconciled 12/26/23 by Moira Lang MD benztropine 0.5 mg PO DAILY cholecalciferol (vitamin D3) 250 mcg PO 2XW 90 days clonidine HCl 0.1 mg PO BEDTIME hydroxyzine HCl 5 - 10 mg PO DAILY PRN linaclotide (Linzess) 72 mcg PO QAM 30 days metoclopramide HCl 5 mg PO BID 90 days omeprazole 20 mg PO BID 90 days quetiapine ER (Seroquel XR) 400 mg PO QPM sennosides-docusate sodium 8.6-50 mg (Stimulant Laxative Plus) 2 tabs PO BEDTIME sumatriptan succinate (Imitrex) 25 mg PO Q2-4H PRN 60 days HPI 4 month follow up HPI Details GI clinic visit for this 33-year-old female for FU of GERD, gastroparesis and colon polyps. Pt is a special needs person. ?CHRONIC ILLNESSES:?asthma, gastroesophageal reflux disease (GERD), environmental allergies, depression, anxiety ? IMAGING STUDIES: 12/12/22 ABD US SHOWED: 1. There is generalized increase in hepa tic echotexture, consistent with fatty infiltration or hepatocellular disease. Please correlate clinically. No focal hepatic mass or intrahepatic biliary dilatation is seen. 2. Technically limited ultrasound examin ation of the pancreas. 03/31/20 GASTRIC EMPTYING STUDY SHOWED: ? FINDINGS: ? 1 hour 98% (normal 37%-90%) ? 2 hours 94% (normal 30%-60%) ? 3 hours 76% ? 4 hours 68% (normal 0%-10%) ENDOSCOPIC STUDIES: 07/15/23 COLONOSCOPY SHOWED: Three medium sized polyps removed Moderate diverticulosis seen in the sigmoid colon Small hemorrhoids on retroflexed exam. Plan: Repeat Colonoscopy interval based on path results - in 3 years if polyps are adenomatous and 10 years if polyps are hyperplastic. (adult colonoscopy for future colonoscop ies) Above findings were reviewed with the patient and colon polyps and diverticulosis handouts were given in the discharge area BIOPSIES SHOWED: A.? Colon, sigmoid at 30 cm, polyp:? Tubular adenoma; negative for high-grade dysplasia and carcinoma. B.? Colon, sigmoid at 25 cm, polyps:? Tubular adenomas, two; negative for high-grade dysplasia and carcinoma. 03/20/23 EGD AND FLEX SIGMOIDOSCOPY SHOWE D: Endoscopy Findings: STOMACH:?Mild gastric erythema and a benign appearing gastric polyp. Balloon dilation of pylorus was performed with an 18 mm CRE balloon x 60 seconds. Botox 100 Units was injected in the pyloric sphincter (25 units in each quadrant) DUODENUM: Normal - biopsied to check for celiac sprue Colonoscopy Findings: Three medium sized polyps in the sigmoid colon - not removed since pt was not prepped. Moderate hemorrhoids on retroflexed exam. Plan:? Pt will be scheduled for a full colonoscopy for removal of colon polyps. Above findings were reviewed with the patient and colon polyps and? handouts were given in the discharge area BIOPSIES SHOWED: A.? Small bowel, biopsy:? Small bowel mucosa with preserved villi and no specific change; no evidence of celiac disease. B.? Gastric antrum, biopsy:? Gastric antral mucosa with congestion and minimal chronic inactive gastritis; negative for H pylori, intestinal metaplasia and dysplasia. C. Gastric polyp:? Fundic gland polyp with minimal chronic inactive gastritis; negative for H pylori, intestinal metaplasia and dysplasia.? EGD-12/24/[address] PRAKASH: ? Esophagus: GE junction at 35 cm. No esophagitis or Carey s. Random esophageal bx taken ? Stomach: Streaky gastric erythema at antrum. Biopsies were obtained. Grade 2 flap ? valve on retroflexed examination of the cardia. The pylorus seemed tight so it ? was stretched with 18 mm balloon, there was also retained food noted. ? Duodenum: Normal bulb and descending duodenum, bx taken ? BIOPSIES SHOWED: ? A. Duodenum, biopsies: Duodenal mucosa with no significant histopathology; no villous ? abnormality identified; no increase in intraepithelial lymphocytes. ? B. Stomach, biopsies: Gastric mucosa with moderate chronic, inactive gastritis; negative for Helicobacter pylori organisms; negative for intestinal metaplasia; negative for dysplasia. ? C. Esophagus, random, biopsies: Fragments of squamous epithelium within normal limits. ??TODAY'S VISIT Pt is accompanied by her ?patient care provider CC: She states that she had COVID a couple weeks ago. She states that she had a bad stomach pains and nausea and she has been okay since. She is making herself eat but something still does not feel right. Had COVID during tono vacation and had severe stomach ache, nausea, vomiting and diarrhea Has had chronic nausea ever since and trying to make herself eat. Has constipation since she does not drink enough fluids. Feels hungry all the time and has been snacking on carbs Has been gaining weight PAST VISIT: Colon results reviewed. Doing well. Notes rectal bleeding when she has her periods Has constipation and notes bleeding when she strains Has small BMs with straining with incomplete evacuation Linzess was causing diarrhea and she stopped taking it - advised to take a lower dose of Linzess She noted improvement in her symptoms after EGD, botox injection and pyloric balloon dilation Had another episode of rectal bleeding 2 weeks after her procedures Willing to have a colonoscopy Has nausea and vomiting when she has migraine ALLEN Takes acetaminophen which does not help - pt advised to discuss with her PCP. Has constipation and has a BM 1-2 times a week. (sister has the same problem) Takes Linzess and Senna. Patient cc: constipation, and low back pain, patient stop linzess because she was having BM accident, denies any other GI issues. Pain is pressure like and comes and goes. Pain lasts for an hour. Medicatons help with the heartburn and not with the abdominal pain. She has been using the Linzess and kept pooping a lot of water (also had the flu that day) Has been peeing a lot - urinates every hour and thinks she has an overactive bladder. Notes some nausea and denies vomiting. Takes Senna every night and has a BM every few days and sometimes once a week. Notes some bloating. Denies any change in abd pain after a BM or passing gas. Getting hungry a lot and has been eating. She is always hungry. Has anemia due to menstrual blood loss and is used to feeling dizzy ? Intermittent painless rectal bleeding - blood is bright red. Admits to a hx of hemorrhoids. Had COVID a few months ago - breathing problems, fluid in her lungs and brain fog - recovered. Continues to have indigestion. Notes abd pain if she takes iron without food. Has a BM 1-2 times - denies hard stools or straining. Intermittent gas and bloating. Prescribed Ferrous sulfate by her PCP. Notes some indigestion and upset stomach due to iron. She was prescribed a stool softener as well. Pt denies heavy periods - her Mom reported her periods are heavy. Denies black stools or blood in stools. Intermittent constipation improved with stool softeners ? ? ? Feeling good and eating OK ? ? ? Appetite is good and weight is stable. ?? ? Denies nausea. Spoke to Ada and her step Mom. ? Medication is working but not a 100%. ? Has nausea which comes and goes. ? Thought she was getting better. ? Can have regurgitation of food. ? Tried taking heavier food and noted worsening symptoms ? Was doing a lot better with small meals. ? Taking smoothies ? Thinks she has been loosing weight and clothes. ? Weighs 145 lbs (decreased from 156 lbs in Jan 2020). ? GES results were reviewed with the patient and her stepmom. ? Having GI problems for a long time. ? Has been having recurrent post prandial nausea and an episode of vomiting a few fibres. ? Doing good. Feels symptoms are 75% better. ? Still has some nausea and abdominal pain ? Sometimes has regurgitation of food after a meal when her stomach is full. ? Can have symptoms in the middle of the day. ? Complains of early satiety. ? Has been loosing weight [facility] Medical History (Updated 12/26/23 @ 11:18 by Moira Lang MD) Hx of flexible sigmoidoscopy Gastroparesis GERD without esophagitis Anxiety Depression Environmental allergies Asthma Surgical History Hx of breast biopsy Hx of breast reconstruction Hx of colonoscopy Hx of esophagogastroduodenoscopy Family History Father Alive and well Mother Alive and well Paternal Uncle Esophageal and gastric varices Esophageal cancer Social History Household Members: Family Alcohol intake: never Patient Tobacco Use Status: Never used Tobacco Current occupational status: unemployed Review of Systems Const All systems reviewed & are unremarkable except as noted in HPI and below Physical Exam Vital Signs: Last Vital Signs Pulse 101 H 12/26/23 10:47 BP 105/66 12/26/23 11:27 BMI result Body Mass Index 27.0 Const General: healthy appearing and no acute distress Nutritional Appearance: overweight Orientation/consciousness: patient oriented x3 Limitations: other limitations (Patient is a special needs person) HEENT Head: Yes normal to inspection Ears: hearing grossly normal bilaterally Eyes Sclerae: sclerae normal Pupils: Equal, round and reactive pupils present Neck Neck: Yes normal visual inspection Chest Chest palpation & inspection: normal inspection of the chest Resp Effort & Inspection: normal respiratory effort Auscultation: clear to auscultation bilaterally Cardio Palpation: normal PMI Rate: regular rate Rhythm: regular rhythm Heart sounds: S1 normal heart sound present, S2 normal heart sound present and no murmurs GI Palpation (GI): Soft to palpation, nontender and No hepatosplenomegaly present Auscultation: normal bowel sounds Rectal Exam - Female: deferred Skin General skin exam: no rashes or lesions noted Neuro General: patient oriented x3, gait normal and moves all extremities Cranial nerves: Yes Equal, round and reactive pupils present Psych Appearance: grossly normal Mental Status: mental status grossly normal Assessment & Plan Assessment & Plan (1) Nausea: Code(s): R11.0 - Nausea (2) Iron deficiency anemia: Code(s): D50.9 - Iron deficiency anemia, unspecified (3) Constipation: Code(s): K59.00 - Constipation, unspecified (4) Upper abdominal pain: Code(s): R10.10 - Upper abdominal pain, unspecified (5) Gastroparesis: Code(s): K31.84 - Gastroparesis (6) GERD without esophagitis: Code(s): K21.9 - Gastro-esophageal reflux disease without esophagitis (7) Family history of diabetes mellitus: Code(s): Z83.3 - Family history of diabetes mellitus Plan 33 YF with special needs, asthma, gastroesophageal reflux disease (GERD), environmental allergies, depression, anxiety followed in GI for symptoms of heartburn, early satiety and intermittent postprandial regurgitation. 12/24/19 EGD showed gastritis with a tight pylorus which was dilated with an 18 mm balloon. Small bowel and esophageal biopsies were normal. Gastric biopsies were negative for H pylori. Patient notes partial improvement in her symptoms since EGD with balloon dilation of pylorus was performed. Gastric emptying study showed Gastroparesis. Patient was advised to switch omeprazole from bedtime to 20-30 minutes before breakfast and take 5-6 small meals a day in the interim. Continue Metoclopramide 5 mg twice daily before lunch and dinner. Patient handout on gastroparesis was mailed to the patient with her after visit summary at the time of a previous visit. Pt noted increased symptoms after Thanksgiving which have improved. 11/22/22 Pt complains of intermittent upper abdominal pain. She was advised further evaluation with an abd US 03/2023 EGD with pyloric Botox injection and repeat balloon dilation was performed. (OF note - pt reports getting hungry a lot and has been eating) Same day flexible sigmoidoscopy showed adenomatous appearing polyps in the left colon (Of note stool FIT test was negative in 01/2023). To take Linzess 145 mcg every other day for constipation 07/2023 colonoscopy was performed and findings as noted above 08/01/23 Pt stopped Linzess due to diarrhea - prescribed a lower dose of 72 mcg daily Prescribed low dose Imitrex for migraine HAs 12/26/23 Had COVID during tono vacation and had severe stomach ache, nausea, vomiting and diarrhea Has had chronic nausea ever since and trying to make herself eat and prescribed ondansetron p.r.n. for nausea Has constipation since she does not drink enough fluids. Feels hungry all the time and has been snacking on carbs Has been gaining weight Follow-up appointment in 4 months Orders: Orders Liver Panel Today K21.9 - Gastro-esophageal reflux disease without esophagitis Medications: New ondansetron 4 mg PO Q8H 30 days PRN 30 tabs 0RF nausea and vomiting R11.0 - Bryan sea Coding Level of Care Code Est Pt Level 4 (49358) Diagnoses Nausea R11.0 Iron deficiency anemia D50.9 Constipation K59.00 Upper abdominal pain R10.10 Gastroparesis K31.84 GERD without esophagitis K21.9 Family history of diabetes mellitus Z83.3 Time Spent (min) 23
[2023-12-26 10:47] VITALS: BP 74/53; PULSE 101; BMI 27.0
[2023-12-26 11:27] VITALS: BP 105/66
== END 2023-12-26 11:29 | disposition home or self-care (01) ==
PROVIDERS: PCP Internal Medicine; Visit Provider Internal Medicine Gastroenterology
DX: R11.0 Nausea (principal); D50.9 Iron deficiency anemia, unspecified; K59.00 Constipation, unspecified; R10.10 Upper abdominal pain, unspecified; K31.84 Gastroparesis; K21.9 Gastro-esophageal reflux disease without esophagitis; Z83.3 Family history of diabetes mellitus
CPT/HCPCS: 99214

== ENCOUNTER 2023-12-26 10:39 | Outpatient (REF) | payer MEDICAID, SELFPAY ==
[2023-12-26 12:37] LABS: Estimated Average Glucose 100 mg/dL; Hemoglobin A1c % 5.1 % (<6.0)
[2023-12-26 12:48] LABS: Cholesterol 197 mg/dL (<200); HDL Cholesterol 63 mg/dL (>40); LDL Cholesterol Calculated 106 mg/dL (<100); Triglycerides 140 mg/dL (<150)
[2023-12-26 12:49] LABS: Alanine Aminotransferase 17 U/L (0-31); Albumin Level 4.4 g/dL (3.5-5.0); Alkaline Phosphatase 55 U/L (39-117); Aspartate Amino Transferase 18 U/L (5-31); Bilirubin Direct 0.1 mg/dL (0.0-0.5); Bilirubin Total 0.3 mg/dL (0.0-1.0); Total Protein 7.8 g/dL (6.5-8.0)
[2023-12-27 06:05] LABS: Prolactin 4.4 ng/mL
== END 2023-12-26 10:40 | disposition home or self-care (01) ==
LOC: HO.LAB 10:39
PROVIDERS: Internal Medicine Gastroenterology; PCP Internal Medicine; Visit Provider Registered Nurse Psychiatric/Mental Health
DX: K21.9 Gastro-esophageal reflux disease without esophagitis (principal); R11.0 Nausea; D50.9 Iron deficiency anemia, unspecified; K59.00 Constipation, unspecified; R10.10 Upper abdominal pain, unspecified; K31.84 Gastroparesis; Z83.3 Family history of diabetes mellitus; Z86.16 Personal history of COVID-19; Z79.899 Other long term (current) drug therapy
CPT/HCPCS: 36415; 80061; 80076; 83036; 84146; 99212

== ENCOUNTER 2024-04-07 13:44 | Outpatient (REF) | payer MEDICAID, SELFPAY ==
[2024-04-07 14:25] LABS: Hematocrit 39.2 % (37.0-47.0); Hemoglobin 12.7 g/dl (12.0-16.0)
[2024-04-07 15:19] LABS: TSH reflex Free T4 2.93 uIU/mL (0.32-4.0)
== END 2024-04-07 13:45 | disposition home or self-care (01) ==
LOC: HO.CHCLDS 13:44
PROVIDERS: Visit Provider Advanced Practice Midwife
DX: N92.0 Excessive and frequent menstruation with regular cycle (principal); Z86.2 Personal history of diseases of the blood and blood-forming organs and certain disorders involving the immune mechanism
CPT/HCPCS: 36415; 84443; 85014; 85018

== ENCOUNTER 2024-05-07 11:01 | Outpatient (AMB) | payer MEDICAID, SELFPAY ==
--- NOTE | 2024-05-07 11:09 | A.OFFVIS_ITS ---
Vital Signs 05/07/24 11:12 Height 5 ft 6 in Weight 167 lb BMI 27.0 BP 98/60 Blood Pressure Location Lt brachial Position Sitting Pulse 101 H Intake Visit Reasons: 4 month follow up Intake Note: Patient follow p for constipation and lab results. Patient cc: nauseas, constipation, burping/gassy, and some acid reflex with food coming out her throat. 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 Accompanied by: Family/Other Allergies Sulfa (Sulfonamide Antibiotics) Allergy (Unknown, Verified 12/26/23 10:48) muscle aches, dizziness, high fever Medication List - Last Reconciled 05/07/24 by Moira Lang MD benztropine 0.5 mg PO DAILY cholecalciferol (vitamin D3) 250 mcg PO 2XW 90 days clonidine HCl 0.1 mg PO BEDTIME hydroxyzine HCl 5 - 10 mg PO DAILY PRN linaclotide (Linzess) 72 mcg PO QAM 30 days metoclopramide HCl 5 mg PO BID 90 days omeprazole 20 mg PO BID 90 days ondansetron 4 mg PO Q8H PRN 30 days quetiapine ER (Seroquel XR) 400 mg PO QPM sennosides-docusate sodium 8.6-50 mg (Stimulant Laxative Plus) 2 tabs PO BEDTIME sumatriptan succinate (Imitrex) 25 mg PO Q2-4H PRN 60 days HPI HPI 4 month follow up: Details: GI clinic visit for this 33-year-old female for FU of GERD, gastroparesis and colon polyps. Pt is a special needs person. ?CHRONIC ILLNESSES:?asthma, gastroesophageal reflux disease (GERD), environmental allergies, depression, anxiety ? IMAGING STUDIES: 12/12/22 ABD US SHOWED: 1. There is generalized increase in hepatic echotexture, consistentwith fatty infiltration or hepatocellular disease. Please correlate clinically. No focal hepatic mass or intrahepatic biliary dilatation is seen. 2. Technically limited ultrasound examination of the pancreas. 03/31/20 GASTRIC EMPTYING STUDY SHOWED:? FINDINGS: ? 1 hour 98% (normal 37%-90%) ? 2 hours 94% (normal 30%-60%) ? 3 hours 76% ? 4 hours 68% (normal 0%-10%) ENDOSCOPIC STUDIES: 07/15/23 COLONOSCOPY SHOWED: Three medium sized polyps removed Moderate diverticulosis seen in the sigmoid colon Small hemorrhoids on retroflexed exam. Plan: Repeat Colonoscopy interval based on path results - in 3 years if polyps are adenomatous and 10 years if polyps are hyperplastic. (adult colonoscopy for future colonoscopies)Above findings were reviewed with the patient and colon polyps and diverticulosis handouts were given in the discharge area BIOPSIES SHOWED: A.? Colon, sigmoid at 30 cm, polyp:? Tubular adenoma; negative for high-grade dysplasia and carcinoma. B.? Colon, sigmoid at 25 cm, polyps:? Tubular adenomas, two; negative for high- grade dysplasia and carcinoma. 03/20/23 EGD AND FLEX SIGMOIDOSCOPY SHOWED:Endoscopy Findings: STOMACH:?Mild gastric erythema and a benign appearing gastric polyp. Balloon dilation of pylorus was performed with an 18 mm CRE balloon x 60 seconds. Botox 100 Units was injected in the pyloric sphincter (25 units in each quadrant) DUODENUM: Normal - biopsied to check for celiac sprue Colonoscopy Findings: Three medium sized polyps in the sigmoid colon - not removed since pt was not prepped. Moderate hemorrhoids on retroflexed exam. Plan:? Pt will be scheduled for a full colonoscopy for removal of colon polyps. Above findings were reviewed with the patient and colon polyps and? handouts were given in the discharge area BIOPSIES SHOWED: A.? Small bowel, biopsy:? Small bowel mucosa with preserved villi and no specific change; no evidence of celiac disease. B.? Gastric antrum, biopsy:? Gastric antral mucosa with congestion and minimal chronic inactive gastritis; negative for H pylori, intestinal metaplasia and dysplasia. C. Gastric polyp:? Fundic gland polyp with minimal chronic inactive gastritis; negative for H pylori, intestinal metaplasia and dysplasia.? EGD-12/24/[address] PRAKASH: ? Esophagus: GE junction at 35 cm. No esophagitis or Carey s. Random esophageal bx taken ? Stomach: Streaky gastric erythema at antrum. Biopsies were obtained. Grade 2 flap ? valve on retroflexed examination of the cardia. The pylorus seemed tight so it ? was stretched with 18 mm balloon, there was also retained food noted. ? Duodenum: Normal bulb and descending duodenum, bx taken ? BIOPSIES SHOWED: ? A. Duodenum, biopsies: Duodenal mucosa with no significant histopathology; no villous ? abnormality identified; no increase in intraepithelial lymphocytes. ? B. Stomach, biopsies: Gastric mucosa with moderate chronic, inactive gastritis; negative for Helicobacter pylori organisms; negative for intestinal metaplasia; negative for dysplasia. ? C. Esophagus, random, biopsies: Fragments of squamous epithelium within normal limits. 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 Taking small meals. BMs are hard and painful Still has hemorrhoids Planning to try apple cider vinegar with honey for constipation. PAST VISIT: She is making herself eat but something still does not feel right. Had COVID during [place] vacation and had severe stomach ache, nausea, vomiting and diarrhea Has had chronic nausea ever since and trying to make herself eat. Has constipation since she does not drink enough fluids. Feels hungry all the time and has been snacking on carbs Has been gaining weight Colon results reviewed. Doing well. Notes rectal bleeding when she has her periods Has constipation and notes bleeding when she strains Has small BMs with straining with incomplete evacuation Linzess was causing diarrhea and she stopped taking it - advised to take a lower dose of Linzess She noted improvement in her symptoms after EGD, botox injection and pyloric balloon dilation Had another episode of rectal bleeding 2 weeks after her procedures Willing to have a colonoscopy Has nausea and vomiting when she has migraine ALLEN Takes acetaminophen which does not help - pt advised to discuss with her PCP. Has constipation and has a BM 1-2 times a week. (sister has the same problem) Takes Linzess and Senna. Patient cc: constipation, and low back pain, patient stop linzess because she was having BM accident, denies any other GI issues. Pain is pressure like and comes and goes. Pain lasts for an hour. Medicatons help with the heartburn and not with the abdominal pain. She has been using the Linzess and kept pooping a lot of water (also had the flu that day) Has been peeing a lot - urinates every hour and thinks she has an overactive bladder. Notes some nausea and denies vomiting. Takes Senna every night and has a BM every few days and sometimes once a week. Notes some bloating. Denies any change in abd pain after a BM or passing gas. Getting hungry a lot and has been eating. She is always hungry. Has anemia due to menstrual blood loss and is used to feeling dizzy ? Intermittent painless rectal bleeding - blood is bright red. Admits to a hx of hemorrhoids. Had COVID a few months ago - breathing problems, fluid in her lungs and brain fog - recovered. Continues to have indigestion. Notes abd pain if she takes iron without food. Has a BM 1-2 times - denies hard stools or straining. Intermittent gas and bloating. Prescribed Ferrous sulfate by her PCP. Notes some indigestion and upset stomach due to iron. She was prescribed a stool softener as well. Pt denies heavy periods - her Mom reported her periods are heavy. Denies black stools or blood in stools. Intermittent constipation improved with stool softeners ? ? ? Feeling good and eating OK ? ? ? Appetite is good and weight is stable. ?? ? Denies nausea. Spoke to Ada and her step Mom. ? Medication is working but not a 100%. ? Has nausea which comes and goes. ? Thought she was getting better. ? Can have regurgitation of food. ? Tried taking heavier food and noted worsening symptoms ? Was doing a lot better with small meals. ? Taking smoothies ? Thinks she has been loosing weight and clothes. ? Weighs 145 lbs (decreased from 156 lbs in Jan 2020). ? GES results were reviewed with the patient and her stepmom. ? Having GI problems for a long time. ? Has been having recurrent post prandial nausea and an episode of vomiting a few fibres. ? Doing good. Feels symptoms are 75% better. ? Still has some nausea and abdominal pain ? Sometimes has regurgitation of food after a meal when her stomach is full. ? Can have symptoms in the middle of the day. ? Complains of early satiety. ? Has been loosing weight [facility] Medical History (Updated 12/26/23 @ 11:18 by Moira Lang MD) Hx of flexible sigmoidoscopy Gastroparesis GERD without esophagitis Anxiety Depression Environmental allergies Asthma Surgical History Hx of colonoscopy Hx of breast biopsy Hx of breast reconstruction Hx of esophagogastroduodenoscopy Family History Father Alive and well Mother Alive and well Paternal Uncle Esophageal and gastric varices Esophageal cancer Social History Household Members: Family Alcohol intake: never Patient Tobacco Use Status: Never used Tobacco Current occupational status: unemployed Review of Systems Const All systems reviewed & are unremarkable except as noted in HPI and below Physical Exam Vital Signs: Last Vital Signs Pulse 101 H 05/07/24 11:12 BP 98/60 05/07/24 11:12 BMI result Body Mass Index 27.0 Const General: healthy appearing and no acute distress Nutritional Appearance: overweight Orientation/consciousness: patient oriented x3 Limitations: other limitations (Patient is a special needs person) HEENT Head: Yes normal to inspection Ears: hearing grossly normal bilaterally Eyes Sclerae: sclerae normal Pupils: Equal, round and reactive pupils present Neck Neck: Yes normal visual inspection Chest Chest palpation & inspection: normal inspection of the chest Resp Effort & Inspection: normal respiratory effort Auscultation: clear to auscultation bilaterally Cardio Palpation: normal PMI Rate: regular rate Rhythm: regular rhythm Heart sounds: S1 normal heart sound present, S2 normal heart sound present and no murmurs GI Palpation (GI): Soft to palpation, nontender and No hepatosplenomegaly present Auscultation: normal bowel sounds Rectal Exam - Female: deferred Skin General skin exam: no rashes or lesions noted Neuro General: patient oriented x3, gait normal and moves all extremities Cranial nerves: Yes Equal, round and reactive pupils present Psych Appearance: grossly normal Mental Status: mental status grossly normal Assessment & Plan Assessment & Plan (1) GERD without esophagitis: Code(s): K21.9 - Gastro-esophageal reflux disease without esophagitis Category: Medical (2) Gastroparesis: Code(s): K31.84 - Gastroparesis Category: Medical (3) Iron deficiency anemia: Code(s): D50.9 - Iron deficiency anemia, unspecified Category: Medical (4) Constipation: Code(s): K59.00 - Constipation, unspecified Category: Medical (5) Upper abdominal pain: Code(s): R10.10 - Upper abdominal pain, unspecified Category: Medical Plan 33 YF with special needs, asthma, gastroesophageal reflux disease (GERD), environmental allergies, depression, anxiety followed in GI for symptoms of heartburn, early satiety and intermittent postprandial regurgitation. 12/24/19 EGD showed gastritis with a tight pylorus which was dilated with an 18 m m balloon. Small bowel and esophageal biopsies were normal. Gastric biopsies were negative for H pylori. Patient notes partial improvement in her symptoms since EGD with balloon dilation of pylorus was performed. Gastric emptying study showed Gastroparesis. Patient was advised to switch omeprazole from bedtime to 20-30 minutes before breakfast and take 5-6 small meals a day in the interim. Continue Metoclopramide 5 mg twice daily before lunch and dinner. Patient handout on gastroparesis was mailed to the patient with her after visit summary at the time of a previous visit. Pt noted increased symptoms after Thanksgiving which have improved. 11/22/22 Pt complains of intermittent upper abdominal pain. She was advised further evaluation with an [facility] US 03/2023 EGD with pyloric Botox injection and repeat balloon dilation was performed. (OF note - pt reports getting hungry a lot and has been eating) Same day flexible sigmoidoscopy showed adenomatous appearing polyps in the left colon (Of note stool FIT test was negative in 01/2023). To take Linzess 145 mcg every other day for constipation 07/2023 colonoscopy was performed and findings as noted above 08/01/23 Pt stopped Linzess due to diarrhea - prescribed a lower dose of 72 mcg daily Prescribed low dose Imitrex for migraine HAs 12/26/23 Had COVID during tono vacation and had severe stomach ache, nausea, vomiting and diarrhea Has had chronic nausea ever since and trying to make herself eat and prescribed ondansetron p.r.n. for nausea Has constipation since she does not drink enough fluids. Feels hungry all the time and has been snacking on carbs Has been gaining weight 05/07/24 BMs are hard and painful Still has hemorrhoids Planning to try apple cider vinegar with honey for constipation Pt advised to: 1. Start taking Linzess (Linaclotide) every other day 2. Start Pantoprazole for GERD instead of Omeprazole (If approved by her insurance). Follow-up appointment in 2 months Medications: New pantoprazole 40 mg PO BID 60 tabs 3RF 30 days K21.9 - Gastro-esophageal reflux disease without esophagitis Discontinued omeprazole Discontinued Reason: Ancillary Entered New Order 20 mg PO BID 90 days 180 caps 1RF K21.9 - Gastro-esophageal reflux disease without esophagitis, K31.84 - Gastroparesis Patient Instructions: 1. Start taking Linzess (Linaclotide) every other day 2. I have sent a prescription for Pantoprazole to your pharmacy. If it gets approved by your insurance, you can stop taking Omeprazole and take Pantoprazole in place of Omeprazole Coding Level of Care Code Est Pt Level 4 (96387) Diagnoses GERD without esophagitis K21.9 Gastroparesis K31.84 Iron deficiency anemia D50.9 Constipation K59.00 Upper abdominal pain R10.10 Time Spent (min) 24
[2024-05-07 11:12] VITALS: BP 98/60; PULSE 101; BMI 27.0
== END 2024-05-07 11:49 | disposition home or self-care (01) ==
PROVIDERS: PCP Internal Medicine; Visit Provider Internal Medicine Gastroenterology
DX: K21.9 Gastro-esophageal reflux disease without esophagitis (principal); K31.84 Gastroparesis; D50.9 Iron deficiency anemia, unspecified; K59.00 Constipation, unspecified; R10.10 Upper abdominal pain, unspecified
CPT/HCPCS: 99214

== ENCOUNTER → 2024-05-07 11:01 | Outpatient (BNVA) | payer MEDICAID, SELFPAY | PROVIDERS: PCP Internal Medicine; Visit Provider Internal Medicine Gastroenterology | DX: K21.9 Gastro-esophageal reflux disease without esophagitis (principal); K59.00 Constipation, unspecified; K31.84 Gastroparesis; R10.10 Upper abdominal pain, unspecified; D50.9 Iron deficiency anemia, unspecified | CPT/HCPCS: 99212 ==

== ENCOUNTER 2024-09-10 11:59 | Outpatient (REF) | payer MEDICAID, SELFPAY ==
[2024-09-10 12:33] LABS: Estimated Average Glucose 105 mg/dL; Hemoglobin A1C 106.2864 umol/L; Hemoglobin A1c % 5.3 % (<6.0); Total Hemoglobin (HGBA1C) 3117.5998 umol/L
[2024-09-10 13:00] LABS: Anion Gap 11 (12-20); Blood Urea Nitrogen 12 mg/dL (9-16); Calcium 9.8 mg/dL (8.4-10.2); Carbon Dioxide 27 mmol/L (22-29); Chloride 107 mmol/L (96-108); Cholesterol 183 mg/dL (<200); Estimated Glomerular Filt Rate > 60; Glucose Fasting 88 mg/dL (60-99); HDL Cholesterol 37 mg/dL (>40); LDL Cholesterol Calculated 118 mg/dL (<100); Potassium 4.2 mmol/L (3.3-5.1); Sodium 141 mmol/L (135-145); Triglycerides 140 mg/dL (<150)
[2024-09-10 13:14] LABS: Thyroid Stimulating Hormone 3.01 uIU/mL (0.32-4.0)
[2024-09-12 00:20] LABS: Prolactin 3.1 ng/mL
== END 2024-09-10 12:00 | disposition home or self-care (01) ==
LOC: HO.LAB 11:59
PROVIDERS: PCP Internal Medicine; Visit Provider Registered Nurse Psychiatric/Mental Health
DX: Z79.899 Other long term (current) drug therapy (principal)
CPT/HCPCS: 36415; 80048; 80061; 83036; 84146; 84443

== ENCOUNTER 2024-10-01 11:03 | Outpatient (AMB) | payer MEDICAID, SELFPAY ==
[2024-10-01 11:06] VITALS: BP 115/64; PULSE 104; BMI 26.8
--- NOTE | 2024-10-01 11:06 | MHC.OFFVIS ---
Vital Signs 10/01/24 11:06 Height 5 ft 6 in Weight 166 lb BMI 26.8 BP 115/64 Blood Pressure Location Lt brachial Position Sitting Pulse 104 H Intake Visit Reasons: 2 month follow up Intake Note: Patient 2 month follow up for Constipation. Patient cc: swallowing difficulty with solid food. Denies any other G issue for today. Manager Report Required: No Accompanied by: Family/Other Allergies Sulfa (Sulfonamide Antibiotics) Allergy (Unknown, Verified 10/01/24 11:05) muscle aches, dizziness, high fever Medication List - Last Reconciled 10/01/24 by Moira Lang MD benztropine 0.5 mg PO DAILY cholecalciferol (vitamin D3) 250 mcg PO 2XW 90 days clonidine HCl 0.1 mg PO BEDTIME hydroxyzine HCl 5 - 10 mg PO DAILY PRN linaclotide (Linzess) 72 mcg PO QAM 30 days metoclopramide HCl 5 mg PO BID 90 days ondansetron 4 mg PO Q8H PRN 30 days pantoprazole 40 mg PO BID 90 days quetiapine ER (Seroquel XR) 400 mg PO QPM sennosides-docusate sodium 8.6-50 mg (Stimulant Laxative Plus) 2 tabs PO BEDTIME sumatriptan succinate (Imitrex) 25 mg PO Q2-4H PRN 60 days HPI HPI 2 month follow up: Details: GI clinic visit for this 34-year-old female for FU of GERD, gastroparesis and colon polyps. Pt is a special needs person. CHRONIC ILLNESSES:?asthma, gastroesophageal reflux disease (GERD), environmental allergies, depression, anxiety TODAY'S VISIT Patient cc: swallowing difficulty with solid food. Denies any other G issue for today. Pt is accompanied by her child welfare worker Having trouble swallowing - mostly solids. Has been eating less Notes pressure in the chest and takes a while for the food to pass down in the stomach Denies regurgitation. Unable to swallow sandwiches Taking Linzess a few times a week which is helping with constipation. Taking small meals. BMs are hard and painful Still has hemorrhoids Planning to try apple cider vinegar with honey for constipation. PAST VISIT: Patient cc: nauseas, constipation, burping/gassy, and some acid reflex with food coming out her throat. She is making herself eat but something still does not feel right. Had COVID during tono vacation and had severe stomach ache, nausea, vomiting and diarrhea Has had chronic nausea ever since and trying to make herself eat. Has constipation since she does not drink enough fluids. Feels hungry all the time and has been snacking on carbs Has been gaining weight Colon results reviewed. Doing well. Notes rectal bleeding when she has her periods Has constipation and notes bleeding when she strains Has small BMs with straining with incomplete evacuation Linzess was causing diarrhea and she stopped taking it - advised to take a lower dose of Linzess She noted improvement in her symptoms after EGD, botox injection and pyloric balloon dilation Had another episode of rectal bleeding 2 weeks after her procedures Willing to have a colonoscopy Has nausea and vomiting when she has migraine ALLEN Takes acetaminophen which does not help - pt advised to discuss with her PCP. Has constipation and has a BM 1-2 times a week. (sister has the same problem) Takes Linzess and Senna. Patient cc: constipation, and low back pain, patient stop linzess because she was having BM accident, denies any other GI issues. Pain is pressure like and comes and goes. Pain lasts for an hour. Medicatons help with the heartburn and not with the abdominal pain. She has been using the Linzess and kept pooping a lot of water (also had the flu that day) Has been peeing a lot - urinates every hour and thinks she has an overactive bladder. Notes some nausea and denies vomiting. Takes Senna every night and has a BM every few days and sometimes once a week. Notes some bloating. Denies any change in abd pain after a BM or passing gas. Getting hungry a lot and has been eating. She is always hungry. Has anemia due to menstrual blood loss and is used to feeling dizzy ? Intermittent painless rectal bleeding - blood is bright red. Admits to a hx of hemorrhoids. Had COVID a few months ago - breathing problems, fluid in her lungs and brain fog - recovered. Continues to have indigestion. Notes abd pain if she takes iron without food. Has a BM 1-2 times - denies hard stools or straining. Intermittent gas and bloating. Prescribed Ferrous sulfate by her PCP. Notes some indigestion and upset stomach due to iron. She was prescribed a stool softener as well. Pt denies heavy periods - her Mom reported her periods are heavy. Denies black stools or blood in stools. Intermittent constipation improved with stool softeners ? ? ? Feeling good and eating OK ? ? ? Appetite is good and weight is stable. ?? ? Denies nausea. Spoke to Ada and her step Mom. ? Medication is working but not a 100%. ? Has nausea which comes and goes. ? Thought she was getting better. ? Can have regurgitation of food. ? Tried taking heavier food and noted worsening symptoms ? Was doing a lot better with small meals. ? Taking smoothies ? Thinks she has been loosing weight and clothes. ? Weighs 145 lbs (decreased from 156 lbs in Jan 2020). ? GES results were reviewed with the patient and her stepmom. ? Having GI problems for a long time. ? Has been having recurrent post prandial nausea and an episode of vomiting a few fibres. ? Doing good. Feels symptoms are 75% better. ? Still has some nausea and abdominal pain ? Sometimes has regurgitation of food after a meal when her stomach is full. ? Can have symptoms in the middle of the day. ? Complains of early satiety. ? Has been loosing weight IMAGING STUDIES: 12/12/22 ABD US SHOWED: 1. There is generalized increase in hepatic echotexture, consistentwith fatty infiltration or hepatocellular disease. Please correlate clinically. No focal hepatic mass or intrahepatic biliary dilatation is seen. 2. Technically limited ultrasound examination of the pancreas. 03/31/20 GASTRIC EMPTYING STUDY SHOWED:? FINDINGS: ? 1 hour 98% (normal 37%-90%) ? 2 hours 94% (normal 30%-60%) ? 3 hours 76% ? 4 hours 68% (normal 0%-10%) ENDOSCOPIC STUDIES: 07/15/23 COLONOSCOPY SHOWED: Three medium sized polyps removed Moderate diverticulosis seen in the sigmoid colon Small hemorrhoids on retroflexed exam. Plan: Repeat Colonoscopy interval based on path results - in 3 years if polyps are adenomatous and 10 years if polyps are hyperplastic. (adult colonoscopy for future colonoscopies)Above findings were reviewed with the patient and colon polyps and diverticulosis handouts were given in the discharge area BIOPSIES SHOWED: A.? Colon, sigmoid at 30 cm, polyp:? Tubular adenoma; negative for high-grade dysplasia and carcinoma. B.? Colon, sigmoid at 25 cm, polyps:? Tubular adenomas, two; negative for high-grade dysplasia and carcinoma. 03/20/23 EGD AND FLEX SIGMOIDOSCOPY SHOWED:Endoscopy Findings: STOMACH:?Mild gastric erythema and a benign appearing gastric polyp. Balloon dilation of pylorus was performed with an 18 mm CRE balloon x 60 seconds. Botox 100 Units was injected in the pyloric sphincter (25 units in each quadrant) DUODENUM: Normal - biopsied to check for celiac sprue Colonoscopy Findings: Three medium sized polyps in the sigmoid colon - not removed since pt was not prepped. Moderate hemorrhoids on retroflexed exam. Plan:? Pt will be scheduled for a full colonoscopy for removal of colon polyps. Above findings were reviewed with the patient and colon polyps and? handouts were given in the discharge area BIOPSIES SHOWED: A.? Small bowel, biopsy:? Small bowel mucosa with preserved villi and no specific change; no evidence of celiac disease. B.? Gastric antrum, biopsy:? Gastric antral mucosa with congestion and minimal chronic inactive gastritis; negative for H pylori, intestinal metaplasia and dysplasia. C. Gastric polyp:? Fundic gland polyp with minimal chronic inactive gastritis; negative for H pylori, intestinal metaplasia and dysplasia.? EGD-12/24/[address] PRAKASH: ? Esophagus: GE junction at 35 cm. No esophagitis or Carey s. Random esophageal bx taken ? Stomach: Streaky gastric erythema at antrum. Biopsies were obtained. Grade 2 flap ? valve on retroflexed examination of the cardia. The pylorus seemed tight so it ? was stretched with 18 mm balloon, there was also retained food noted. ? Duodenum: Normal bulb and descending duodenum, bx taken ? BIOPSIES SHOWED: ? A. Duodenum, biopsies: Duodenal mucosa with no significant histopathology; no villous ? abnormality identified; no increase in intraepithelial lymphocytes. ? B. Stomach, biopsies: Gastric mucosa with moderate chronic, inactive gastritis; negative for Helicobacter pylori organisms; negative for intestinal metaplasia; negative for dysplasia. ? C. Esophagus, random, biopsies: Fragments of squamous epithelium within normal limits. [facility] Medical History (Updated 12/26/23 @ 11:18 by Moira Lang MD) Hx of flexible sigmoidoscopy Gastroparesis GERD without esophagitis Anxiety Depression Environmental allergies Asthma Surgical History Hx of colonoscopy Hx of breast biopsy Hx of breast reconstruction Hx of esophagogastroduodenoscopy Family History Father Alive and well Mother Alive and well Paternal Uncle Esophageal and gastric varices Esophageal cancer Social History Household Members: Family Alcohol intake: never Patient Tobacco Use Status: Never used Tobacco Have you been hit, kicked, punched, or otherwise hurt by someone within the past year? If so, by whom?: No Are you DNR?: No Advance Directives: No Advance Directives Information Provided: Yes Current occupational status: unemployed Review of Systems Const All systems reviewed & are unremarkable except as noted in HPI and below Physical Exam Vital Signs: Last Vital Signs Pulse 104 H 10/01/24 11:06 BP 115/64 10/01/24 11:06 BMI result Body Mass Index 26.8 Const General: healthy appearing and no acute distress Nutritional Appearance: overweight Orientation/consciousness: patient oriented x3 Limitations: other limitations (Patient is a special needs person) HEENT Head: Yes normal to inspection Ears: hearing grossly normal bilaterally Eyes Sclerae: sclerae normal Pupils: Equal, round and reactive pupils present Neck Neck: Yes normal visual inspection Chest Chest palpation & inspection: normal inspection of the chest Resp Effort & Inspection: normal respiratory effort Auscultation: clear to auscultation bilaterally Cardio Palpation: normal PMI Rate: regular rate Rhythm: regular rhythm Heart sounds: S1 normal heart sound present, S2 normal heart sound present and no murmurs GI Palpation (GI): Soft to palpation, nontender and No hepatosplenomegaly present Auscultation: normal bowel sounds Rectal Exam - Female: deferred Skin General skin exam: no rashes or lesions noted Neuro General: patient oriented x3, gait normal and moves all extremities Cranial nerves: Yes Equal, round and reactive pupils present Psych Appearance: grossly normal Mental Status: mental status grossly normal Assessment & Plan Assessment & Plan (1) GERD without esophagitis: Code(s): K21.9 - Gastro-esophageal reflux disease without esophagitis Category: Medical (2) Nausea: Code(s): R11.0 - Nausea Category: Medical (3) Gastroparesis: Code(s): K31.84 - Gastroparesis Category: Medical (4) Iron deficiency anemia: Code(s): D50.9 - Iron deficiency anemia, unspecified Category: Medical (5) Constipation: Code(s): K59.00 - Constipation, unspecified Category: Medical (6) Upper abdominal pain: Code(s): R10.10 - Upper abdominal pain, unspecified Category: Medical Plan 34 YF with special needs, asthma, gastroesophageal reflux disease (GERD), environmental allergies, depression, anxiety followed in GI for symptoms of heartburn, early satiety and intermittent postprandial regurgitation. 12/24/19 EGD showed gastritis with a tight pylorus which was dilated with an 18 mm balloon. Small bowel and esophageal biopsies were normal. Gastric biopsies were negative for H pylori. Patient notes partial improvement in her symptoms since EGD with balloon dilation of pylorus was performed. Gastric emptying study showed Gastroparesis. Patient was advised to switch omeprazole from bedtime to 20-30 minutes before breakfast and take 5-6 small meals a day in the interim. Continue Metoclopramide 5 mg twice daily before lunch and dinner. Patient handout on gastroparesis was mailed to the patient with her after visit summary at the time of a previous visit. Pt noted increased symptoms after Thanksgiving which have improved. 11/22/22 Pt complains of intermittent upper abdominal pain. She was advised further evaluation with an abd US 03/2023 EGD with pyloric Botox injection and repeat balloon dilation was performed. (OF note - pt reports getting hungry a lot and has been eating) Same day flexible sigmoidoscopy showed adenomatous appearing polyps in the left colon (Of note stool FIT test was negative in 01/2023). To take Linzess 145 mcg every other day for constipation 07/2023 colonoscopy was performed and findings as noted above 08/01/23 Pt stopped Linzess due to diarrhea - prescribed a lower dose of 72 mcg daily Prescribed low dose Imitrex for migraine HAs 12/26/23 Had COVID during tono vacation and had severe stomach ache, nausea, vomiting and diarrhea Has had chronic nausea ever since and trying to make herself eat and prescribed ondansetron p.r.n. for nausea Has constipation since she does not drink enough fluids. Feels hungry all the time and has been snacking on carbs Has been gaining weight 05/07/24 BMs are hard and painful Still has hemorrhoids Planning to try apple cider vinegar with honey for constipation Pt advised to: 1. Start taking Linzess (Linaclotide) every other day 2. Start Pantoprazole for GERD instead of Omeprazole (If approved by her insurance). 10/01/24 Having trouble swallowing - mostly solids. Has been eating less Notes pressure in the chest and takes a while for the food to pass down in the stomach Pt advised to schedule an EGD with balloon dilation and possible pyloric botox injection - scheduled on 10/02/24 Follow-up appointment in 2 months Coding Level of Care Code Est Pt Level 3 (25479) Diagnoses GERD without esophagitis K21.9 Nausea R11.0 Gastroparesis K31.84 Iron deficiency anemia D50.9 Constipation K59.00 Upper abdominal pain R10.10 Time Spent (min) 18
== END 2024-10-01 12:17 | disposition home or self-care (01) ==
PROVIDERS: PCP Internal Medicine; Visit Provider Internal Medicine Gastroenterology
DX: K21.9 Gastro-esophageal reflux disease without esophagitis (principal); R11.0 Nausea; K31.84 Gastroparesis; D50.9 Iron deficiency anemia, unspecified; K59.00 Constipation, unspecified; R10.10 Upper abdominal pain, unspecified
CPT/HCPCS: 99213

== ENCOUNTER → 2024-10-01 11:03 | Outpatient (BNVA) | payer MEDICAID, SELFPAY | PROVIDERS: PCP Internal Medicine; Visit Provider Internal Medicine Gastroenterology | DX: K21.9 Gastro-esophageal reflux disease without esophagitis (principal); K31.84 Gastroparesis; K59.00 Constipation, unspecified; R11.0 Nausea; R10.10 Upper abdominal pain, unspecified; D50.9 Iron deficiency anemia, unspecified | CPT/HCPCS: 99212 ==

== ENCOUNTER 2024-10-02 11:41 | Day surgery (SDC) | payer MEDICAID, SELFPAY ==
[2024-10-02 07:56] VITALS: BMI 26.8
[2024-10-02 11:54] VITALS: BP 126/82; PULSE 99; RESP 20; TEMP 36.9; O2SAT 98; BMI 26.8
[2024-10-02 11:58] LABS: UPreg QC Valid YES; Urine Pregnancy NEGATIVE (NEGATIVE)
[2024-10-02] MEDS: Lactated Ringers 1,000 ML 50 ML IVCONT (12:11)
--- NOTE | 2024-10-02 13:02 | P.CONAN_ITS ---
[facility] Active Problems Active Problems: All Active Problems Family history of diabetes mellitus (Acute) Migraine headache (Acute) Nausea (Acute) Iron deficiency anemia (Acute) Constipation (Acute) Upper abdominal pain (Acute) Dysuria (Acute) Asthma (Acute) Gastroparesis (Acute) GERD without esophagitis (Acute) Anxiety (Acute) Depression (Acute) Environmental allergies (Acute) Past Medical History Medical History (Updated 12/26/23 @ 11:18 by Moira Lang MD) Hx of flexible sigmoidoscopy Gastroparesis GERD without esophagitis Anxiety Depression Environmental allergies Asthma Family History Family History Father Alive and well Mother Alive and well Paternal Uncle Esophageal and gastric varices Esophageal cancer Family history of problems with anesthesia: No Surgical History Surgical History Hx of colonoscopy Hx of breast biopsy Hx of breast reconstruction Hx of esophagogastroduodenoscopy History of Problems with Anesthesia: No Social History Social History Household Members: Family Alcohol intake: never Patient Tobacco Use Status: Never used Tobacco Have you been hit, kicked, punched, or otherwise hurt by someone within the past year? If so, by whom?: No Are you DNR?: No Advance Directives: No Advance Directives Information Provided: Yes Current occupational status: unemployed Meds Allergies Allergy/AdvReac Type Severity Reaction Status Date / Time Sulfa (Sulfonamide Allergy Unknown muscle Verified 10/01/24 11:05 Antibiotics) aches, dizziness, high fever Active Medications: Current Medications Lactated Ringer's (Lr) 1,000 mls @ 50 mls/hr IVCONT .Q20H RAFITA Last Admin: 10/02/24 12:11 Dose: 50 mls/hr Naloxone HCl (Naloxone Hcl 0.4 Mg/Ml Vial) 0.04 mg IVPUSH Q5M PRN PRN Reason: Excessive sedation or RR < 8 Home Medications ?Medication ?Instructions ?Recorded ?Confirmed ?Last Taken ?Type benztropine 0.5 mg tablet 0.5 mg PO DAILY 09/26/20 10/01/24 Unknown History clonidine HCl 0.1 mg tablet 0.1 mg PO BEDTIME 09/26/20 10/01/24 Unknown History quetiapine 400 mg tablet,extended 400 mg PO QPM 09/26/20 10/01/24 Unknown History release 24 hr (Seroquel XR) hydroxyzine HCl 10 mg tablet 5 - 10 mg PO DAILY PRN 12/26/23 10/01/24 Unknown History sennosides 8.6 mg-docusate sodium 2 tab PO BEDTIME 12/26/23 10/01/24 Unknown History 50 mg tablet (Stimulant Laxative Plus) Exam Height,Weight and Vital Signs: Height 5 ft 6 in Weight 75.3 kg Last Vital Signs Temp 98.5 F 10/02/24 11:54 Pulse 99 10/02/24 11:54 Resp 20 10/02/24 11:54 BP 126/82 10/02/24 11:54 Pulse Ox 98 10/02/24 11:54 O2 Del Method Room Air 10/02/24 11:54 Pertinent Lab Results Pertinent Lab Results: Laboratory Tests 10/02/24 11:50 Urine Test NEGATIVE Airway Mallampati Class: II (couple missing and broken) TM Dist: >3cm Neck ROM: Full Heart: rrr Lungs: cta Assessment and Plan Assessment Anesthesia Assessment: Anesthesia Plan Discussed and Chart Reviewed Final Anesthetic Review Family History of Problems with Anesthesia: No History of Problems with Anesthesia: No NPO: Yes ASA Class: II Final Preanesthetic Review: No Changes in Pt Med Stat, Meds/Allgs Chart Reviewed and Consent Obtained/Reviewed Patient Risk: Low Procedure Risk: Intermediate Anesthetic Plan Anesthetic Plan: MAC: Disposition: Standard PACU
--- NOTE | 2024-10-02 13:12 | MHC.SHP ---
Pre-Procedural Eval Section A - 24 Hr Update-Section A only Date of Service: 10/02/24 The patient is an INPATIENT: No Changes since office visit: Yes Patient answered all questions; No Cold of Flu in the past 2 weeks, No New Medical Problems and No Changes in Medication The patient has been examined within 24 hours of the surgical procedure. The History & Physical has been completed within 30 days and I have reviewed it.: Yes Section B - Complete if H&P > 30 days Chief Complaint: Gastro-esophageal reflux disease without esophagit Allergies: Allergies Allergy/AdvReac Type Severity Reaction Status Date / Time Sulfa (Sulfonamide Allergy Unknown muscle Verified 10/01/24 11:05 Antibiotics) aches, dizziness, high fever Plan Diagnosis/Plan: Unchanged I have reviewed the history and physical and performed a pertinent physical examination on my patient. No changes have occurred unless specified. Time Spent With Patient Time: Total time managing care of this patient today ____ minutes.
[2024-10-02 13:47] VITALS: BP 115/63; PULSE 120; RESP 16; TEMP 36.2; O2SAT 97
--- NOTE | 2024-10-02 13:48 | W.PM.OPN ---
Operative Note Operative Note Date of Service: 10/02/24 Narrative: FLEXIBLE TRANSORAL UPPER GASTROINTESTINAL ENDOSCOPY WITH BIOPSIES, ESOPHAGEAL AND PYLORIC BALLOON DILATION AND PYLORIC BOTOX INJECTION Pre-op diagnosis: D dysphagia, early satiety, gastroparesis, Post-op diagnosis: Gastritis, gastroparesis.? Endoscopist:? Moira Lang MD Anesthesia:?MAC UPPER ENDOSCOPY Consent: Indications for the procedure and potential complications of bleeding, perforation, reaction to medications and missed diagnosis were discussed with the patient and informed consent was obtained. Instrument: Olympus GIF H 190 mid size upper endoscope Monitoring: Vital signs and clinical assessment, continuous EKG monitoring, Pulse oximetry, Carbon Dioxide monitoring and blood pressure monitoring were done throughout the procedure. Procedure: The patient was placed in the left lateral decubitis position and pre-procedure medications were administered and a bite block was placed. The endoscope was inserted into the mouth and advanced under direct vision to the third part of duodenum. A careful inspection was made as the upper endoscope was withdrawn including a retroflexed examination of the proximal stomach; Findings and interventions are described below. Findings: Larynx: Normal Esophagus: GE junction at 34 cms. Tortuous esophagus without stricture or ring. No esophagitis or Carey's. Esophageal balloon dilation was performed with a 20 mm (60 F) CRE balloon x 60 seconds. Biopsies were obtained from proximal, mid and distal esophagus to check for EOE Stomach: No residual food in the stomach (pt was on a clear liquid diet the day before EGD) Mild gastric erythema. Biopsies obtained during previous EGD were negative for H pylori. Balloon dilation of pylorus was performed with a 19mm CRE balloon x 60 seconds. Botox 100 Units was injected in the pyloric sphincter (25 units in each quadrant) Grade 2 flap valve on retroflexed examination of the cardia. Duodenum: Normal bulb and descending duodenum. Impression and Post Procedure Diagnosis: Endoscopy Findings: ESOPHAGUS: Tortuous esophagus without stricture or ring. No esophagitis or Carey's. Esophageal balloon dilation was performed with a 20 mm (60 F) CRE balloon x 60 seconds. Biopsies were obtained from proximal, mid and distal esophagus to check for EOE STOMACH: Mild gastritis and no retained food in the stomach (pt was on a clear liquid diet the day before EGD) Balloon dilation of pylorus was performed with an 19 mm CRE balloon x 60 seconds. Botox 100 Units was injected in the pyloric sphincter (25 units in each quadrant) Plan: Await pathology results Patient has an appointment on 10/16/24 in the GI Clinic with Moira Lang M.D. Above findings were reviewed with the patient and relevant handouts were given in the discharge area BIOPSIES SHOWED: A. Esophagus, distal, biopsy: Squamous mucosa with a rare intraepithelial eosinophil (up to 1 per high- power field, may be due to reflux); no columnar mucosa present. B. Esophagus, mid, biopsy: Squamous mucosa with no specific change; no columnar mucosa present. C. Esophagus, proximal, biopsy: Squamous mucosa with no specific change; no columnar mucosa present. Comment: There is no evidence of eosinophilic esophagitis in any location.
[2024-10-02 14:07] VITALS: BP 112/68; PULSE 93; RESP 17; TEMP 36.1; O2SAT 97
== END 2024-10-02 14:49 | disposition home or self-care (01) ==
PROVIDERS: Anesthesiology; PCP Internal Medicine; Visit Provider Internal Medicine Gastroenterology
PROC: (CPT 43249; principal; 2024-10-02 13:40)
DX: K31.84 Gastroparesis (principal); R13.10 Dysphagia, unspecified; K29.70 Gastritis, unspecified, without bleeding; K22.2 Esophageal obstruction; K21.9 Gastro-esophageal reflux disease without esophagitis; R68.81 Early satiety; K59.00 Constipation, unspecified; J45.909 Unspecified asthma, uncomplicated; D50.9 Iron deficiency anemia, unspecified; Z79.899 Other long term (current) drug therapy
CPT/HCPCS: 43249; 43239; 43245; 43236; 81025; 88305; C1726; J0585; J2003; J2704

== ENCOUNTER → 2024-10-02 11:41 | Outpatient (BNV) | payer MEDICAID, SELFPAY | PROVIDERS: PCP Internal Medicine; Visit Provider Internal Medicine Gastroenterology | DX: R13.10 Dysphagia, unspecified (principal); R68.81 Early satiety; K29.70 Gastritis, unspecified, without bleeding; K31.84 Gastroparesis | CPT/HCPCS: 43239; 43245; 43249; 45381 ==

== ENCOUNTER 2024-10-16 08:08 | Outpatient (AMB) | payer MEDICAID, SELFPAY ==
--- NOTE | 2024-10-16 08:10 | MHC.OFFVIS ---
Intake Visit Reasons: EGD results Intake Note: Patient follow up for EGD results. Patient cc: abdominal pain, vomit, diarrhea with some blood. Supervisor Compounding And Finishing Required: No Allergies Sulfa (Sulfonamide Antibiotics) Allergy (Unknown, Verified 10/16/24 08:09) muscle aches, dizziness, high fever Medication List - Last Reconciled 10/16/24 by Moira Lang MD benztropine 0.5 mg PO DAILY cholecalciferol (vitamin D3) 250 mcg PO 2XW 90 days clonidine HCl 0.1 mg PO BEDTIME hydroxyzine HCl 5 - 10 mg PO DAILY PRN linaclotide (Linzess) 72 mcg PO QAM 30 days metoclopramide HCl 5 mg PO BID 90 days ondansetron 4 mg PO Q8H PRN 30 days pantoprazole 40 mg PO BID 90 days quetiapine ER (Seroquel XR) 400 mg PO QPM sennosides-docusate sodium 8.6-50 mg (Stimulant Laxative Plus) 2 tabs PO BEDTIME sumatriptan succinate (Imitrex) 25 mg PO Q2-4H PRN 60 days HPI HPI EGD results: Details: Telemedicine visit for this 34-year-old female for FU of GERD, gastroparesis and colon polyps. Pt is a special needs person. CHRONIC ILLNESSES:?asthma, gastroesophageal reflux disease (GERD), environmental allergies, depression, anxiety TODAY'S VISIT EGD results were reviewed with the patient. Notes improvement in dysphagia and early satiety. She was constipated yesterday - took Linzess and Dulcolax and had diarrhea and vomiting. Advised to take Linzess every other day (gets diarrhea if she takes it daily) PAST VISIT: Patient cc: swallowing difficulty with solid food. Denies any other G issue for today. Pt is accompanied by her health outreach worker Having trouble swallowing - mostly solids. Has been eating less Notes pressure in the chest and takes a while for the food to pass down in the stomach Denies regurgitation. Unable to swallow sandwiches Taking Linzess a few times a week which is helping with constipation. Taking small meals. BMs are hard and painful Still has hemorrhoids Planning to try apple cider vinegar with honey for constipation. Patient cc: nauseas, constipation, burping/gassy, and some acid reflex with food coming out her throat. She is making herself eat but something still does not feel right. Had COVID during tono vacation and had severe stomach ache, nausea, vomiting and diarrhea Has had chronic nausea ever since and trying to make herself eat. Has constipation since she does not drink enough fluids. Feels hungry all the time and has been snacking on carbs Has been gaining weight PFSH Medical History (Updated 12/26/23 @ 11:18 by Moira Lang MD) Hx of flexible sigmoidoscopy Gastroparesis GERD without esophagitis Anxiety Depression Environmental allergies Asthma Surgical History Hx of colonoscopy Hx of breast biopsy Hx of breast reconstruction Hx of esophagogastroduodenoscopy Family History Father Alive and well Mother Alive and well Paternal Uncle Esophageal and gastric varices Esophageal cancer Social History Household Members: Family Alcohol intake: never Patient Tobacco Use Status: Never used Tobacco Current occupational status: unemployed Review of Systems Const All systems reviewed & are unremarkable except as noted in HPI and below Telehealth Telehealth Telehealth Platform: Telephone Location of provider rendering services: practice address Location of patient: address on file Patient Identification confirmed using: Name, : Yes Telehealth method: voice only Patient verbally consented to treatment: Yes Patient verbally consented to billing insurance company: Yes Patient informed of any privacy concerns related to visit: Yes Minutes spent on Phone/Video with Pt.: 15 Assessment & Plan Assessment & Plan (1) GERD without esophagitis: Code(s): K21.9 - Gastro-esophageal reflux disease without esophagitis Category: Medical (2) Gastroparesis: Code(s): K31.84 - Gastroparesis Category: Medical (3) Iron deficiency anemia: Code(s): D50.9 - Iron deficiency anemia, unspecified Category: Medical (4) Constipation: Code(s): K59.00 - Constipation, unspecified Category: Medical (5) Upper abdominal pain: Code(s): R10.10 - Upper abdominal pain, unspecified Category: Medical Plan 34 YF with special needs, asthma, gastroesophageal reflux disease (GERD), environmental allergies, depression, anxiety followed in GI for symptoms of heartburn, early satiety and intermittent postprandial regurgitation. 12/24/19 EGD showed gastritis with a tight pylorus which was dilated with an 18 mm balloon. Small bowel and esophageal biopsies were normal. Gastric biopsies were negative for H pylori. Patient notes partial improvement in her symptoms since EGD with balloon dilation of pylorus was performed. Gastric emptying study showed Gastroparesis. Patient was advised to switch omeprazole from bedtime to 20-30 minutes before breakfast and take 5-6 small meals a day in the interim. Continue Metoclopramide 5 mg twice daily before lunch and dinner. Patient handout on gastroparesis was mailed to the patient with her after visit summary at the time of a previous visit. Pt noted increased symptoms after Thanksgiving which have improved. 11/22/22 Pt complains of intermittent upper abdominal pain. She was advised further evaluation with an abd US 03/2023 EGD with pyloric Botox injection and repeat balloon dilation was performed. (OF note - pt reports getting hungry a lot and has been eating) Same day flexible sigmoidoscopy showed adenomatous appearing polyps in the left colon (Of note stool FIT test was negative in 01/2023). To take Linzess 145 mcg every other day for constipation 07/2023 colonoscopy was performed and findings as noted above 08/01/23 Pt stopped Linzess due to diarrhea - prescribed a lower dose of 72 mcg daily Prescribed low dose Imitrex for migraine HAs 12/26/23 Had COVID during tono vacation and had severe stomach ache, nausea, vomiting and diarrhea Has had chronic nausea ever since and trying to make herself eat and prescribed ondansetron p.r.n. for nausea Has constipation since she does not drink enough fluids. Feels hungry all the time and has been snacking on carbs Has been gaining weight 05/07/24 BMs are hard and painful Still has hemorrhoids Planning to try apple cider vinegar with honey for constipation Pt advised to: 1. Start taking Linzess (Linaclotide) every other day 2. Start Pantoprazole for GERD instead of Omeprazole (If approved by her insurance). 10/01/24 Having trouble swallowing - mostly solids. Has been eating less Notes pressure in the chest and takes a while for the food to pass down in the stomach 10/02/24 EGD with balloon dilation and pyloric botox injection was performed 10/16/24 EGD results were reviewed with the patient. Notes improvement in dysphagia and early satiety. She was constipated yesterday - took Linzess and Dulcolax and had diarrhea and vomiting. Advised to take Linzess every other day (gets diarrhea if she takes it daily) Follow-up appointment in 3 month Coding Level of Care Code Tele Est Pt Level 3 (74748) Diagnoses GERD without esophagitis K21.9 Gastroparesis K31.84 Iron deficiency anemia D50.9 Constipation K59.00 Upper abdominal pain R10.10 Time Spent (min) 15
== END 2024-10-16 09:30 | disposition home or self-care (01) ==
LOC: HO.HGI 08:08
PROVIDERS: PCP Internal Medicine; Visit Provider Internal Medicine Gastroenterology
DX: K21.9 Gastro-esophageal reflux disease without esophagitis (principal); K31.84 Gastroparesis; D50.9 Iron deficiency anemia, unspecified; K59.00 Constipation, unspecified
CPT/HCPCS: 99213

== ENCOUNTER → 2024-10-16 08:08 | Outpatient (BNVA) | payer MEDICAID, SELFPAY | PROVIDERS: PCP Internal Medicine; Visit Provider Internal Medicine Gastroenterology ==

== ENCOUNTER 2025-02-02 13:07 | Outpatient (RCR) | payer MEDICAID, SELFPAY | END 2025-02-02 13:48 | disposition home or self-care (01) | LOC: HO.PT 13:07 | PROVIDERS: PCP Internal Medicine; Visit Provider Nurse Practitioner Family | DX: N32.81 Overactive bladder (principal); N39.41 Urge incontinence | CPT/HCPCS: 97110; 97112; 97140; 97161 ==

== ENCOUNTER 2025-02-03 09:37 | Outpatient (REF) | payer MEDICAID, SELFPAY ==
--- NOTE | ~2025-02-03 | XR_ITS ---
EXAMINATION: XR KNEE, RIGHT CLINICAL INFORMATION: pain COMPARISON: None available. TECHNIQUE: Four views of the right knee. FINDINGS: No fracture or joint effusion. Alignment is anatomic. Joint spaces are maintained. No abnormal soft tissue calcification. XR/XR knee RT 2V IMPRESSION: Unremarkable right knee. Electronically signed by: Joseph Mcguire MD 02/03/2025 10:25 AM [facility]
--- OUTSIDE RECORDS SUMMARY | 2025-02-03 10:59 | XMS_ITS | Encounter Summary ---
Author Organization [employer] Address [address] [facility] [address]t [address] [place] [id number] Care Team Providers Care American Sign Language Teacher Name Role Phone Vannessa Sorto MD Primary Care Provider Encounter Details Date Type Department Care Team (Latest Contact Info) Description 05/04/2019 Abstract [facility] CONVERSIONS Dental, Provider, DDS Social History Tobacco Use Types Packs/Day Years Used Date Smoking Tobacco: Never Assessed Comments Unknown Sex and Gender Information Value Date Recorded Sex Assigned at Female 10/01/2022 10:22 AM EDT Legal Sex Female 10:22 AM EDT Gender Identity Female 10/01/2022 10:22 AM EDT Sexual Orientation Straight 10/01/2022 10 :22 AM EDT documented as of this encounter Plan of Treatment Upcoming Encounters Date Type Department Care Team (Late st Contact Info) Description 05/06/2025 9:15 AM EDT Office Visit [facility] MED & PEDS [address] [place] [address] Vannessa Sorto MD [address] [place] [address] documented as of this encounter Visit Diagnoses Not on filedocumented in this encounter Care Teams American Sign Language Teacher Relationship Specialty Start Date End Date Vannessa Sorto MD [address] [place] [address] PCP - General Internal Medicine 12/07/11 documented as of this encounter
--- OUTSIDE RECORDS SUMMARY | 2025-02-03 10:59 | XMS_ITS | Encounter Summary ---
Author Organization [employer] Address [address] [facility] 7[address] [place] [address] Care Team Providers Care Spray Painting Machine Operator Name Role Phone Vannessa Sorto MD Primary Care Provider Reason for Visit * Reason Onset Date Comments Nurse Triage 01/21/2025 Encounter Details Date Type Department Care Team ([facility] st Contact Info) Description 01/21/2025 Telephone [facility] MED [facility] PEDS [address] [place], [place] [phone] Vannessa Sorto MD [address] [place] [address] Nurse Triage Social History Tobacco Use Types Packs/Day Years Used Date Smoking Tobacco: Never Smokeless Tobacco: Never Alcohol Use Standard Drinks/Week Comments Never 0 (1 standard drink = 0.6 oz pur e alcohol) Depression Answer Date Recorded Patient Health Questionnaire-9 Score 6 05/15/2023 Depression Answer Date Recorded Patient Health Questionnaire-2 Score 0 05/15/2023 Comments No Sex and Gender Information Value Date Recorded Sex Assigned at Female 10/01/2022 10:22 AM EDT Legal Sex Female 10:22 AM EDT Gender Identity Female 10/01/2022 10:22 AM EDT Sexual Orientation Straight 10/01/2022 10 :22 AM EDT documented as of this encounter Miscellaneous Notes * Telephone Encounter - Chelsie Perry LPN - 01/21/2025 2:08 PM EST Triage call to patient who reports that she has worsening right knee pain. No known injury feels sharp pain beneath knee cap on the right knee. Has no noted swelling or redness. No OTC use and pain worsened over last month. Patient reports difficulty getting up from the floor due to discomfort. Appointment availability to accommodate transportaion verified with [facility] Wink Cutter Operator for tomorrow. Return call to patient and in agreement with plan. Patient Step Mom provided patient with Ibuprofenfor discomfort now. Advised to take with food as needed. ASK/[facility]/SDC/ tomorrow at 11am. Protocol Used: Knee Pain (Adult) Protocol-Based Disposition: See in Office or Video Visit within 3 Days Video visit not offered Positive Triage Question: * Moderate pain (e.g., symptoms interfere with work or school, limping) and present > 3 days * All higher-acuity triage questions were negative Care Advice Discussed: * Pain Medicines - Extra Notes and Warnings * Reasons To Call Back - Moderate pain (interferes with normal activities, limping) lasts over 3 days - Mild pain lasts over 7 days - Signs of infection occur (spreading redness, warmth, fever) - You become worse * Telephone Encounter - Carolin Dickey - 01/21/2025 1:35 PM EST Symptom: Knee Pain - Not From Injury Outcome: Schedule an urgent appointment (within 1 hour) or talk to a nurse or provider soon Reason: Trouble walking The caller accepted this outcome. documented in this encounter Plan of Treatment Upcoming Encounters Date Type Department Care Team (Late st Contact Info) Description 05/06/2025 9:15 AM EDT Office Visit [facility] MED & PEDS [address] [place] [address] Vannessa Sorto MD [address] [place] [address] documented as of this encounter Visit Diagnoses Not on filedocumented in this encounter Additional Health Concerns Assessment Noted Time PHQ-9 Depression Total Score: 6 05/15/20 23 11:24 AM EDT documented as of this encounter Care Teams Spray Painting Machine Operator Relationship Specialty Start Date End Date Vannessa Sorto MD [address] [place] [address] PCP - General Internal Medicine 12/07/11 documented as of this encounter
--- OUTSIDE RECORDS SUMMARY | 2025-02-03 11:00 | XMS_ITS | Encounter Summary ---
Author Organization [employer] Address [address] [facility] 7[address] [place] [address] Care Team Providers Care Ed Educational Aide Name Role Phone Vannessa Sorto MD Primary Care Provider [phone] Reason for Visit * Reason Comments Knee Pain Encounter Details Date Type Department Care Team ([facility] st Contact Info) Description 02/03/2025 8:45 AM EST Office Visit [facility] MED & PEDS [address] [place], [place] [phone] Margarita Cobb MD [address] [place] [address] Chronic pain of right knee (Primary Dx) Social History Tobacco Use Types Packs/Day Years Used Date Smoking Tobacco: Never Smokeless Tobacco: Never Tobacco Cessation:Counseling Given: Not Answered Alcohol Use Standard Drinks/Week Comments Never 0 [...] AM EDT documented as of this encounter Last Filed Vital Signs Vital Sign Reading Time Taken Comments Blood Pressure 101/64 02/03/2025 8:47 AM EST Pulse 99 02/03/2025 8:47 AM EST Temperature 36.2 ??C (97.1 ??F) 02/03/2025 8:47 AM ES T Respiratory Rate 18 02/03/2025 8:47 AM EST Oxygen Saturation 99% 02/03/2025 8:47 AM EST Inhaled Oxygen Concentration - - Weight 72.6 kg (160 lb) 02/03/2025 8:47 AM EST Height 158.8 cm (5' 2.5 ) 02/03/2025 8:47 AM EST Body Mass Index 28.8 02/03/2025 8:47 AM EST documented in this encounter Progress Notes * Margarita Cobb MD - 02/03/2025 8:45 AM EST Subjective Patient ID: Marcella Pacheco is a 34 y.o. female who presents for Knee Pain. Knee Pain There was no injury mechanism. The pain is present in the right knee. The quality of the pain is described as aching. The pain is at a severity of 5/10. The pain is moderate. The pain has been Intermittent since onset. Associated symptoms include an inability to bear weight. The symptoms are aggravated by movement. She has tried acetaminophen for the symptoms. Review of Systems Constitutional: Negative. Respiratory: Negative. Negative for shortness of breath. Cardiovascular: Negative for chest pain and palpitations. Gastrointestinal: Negative. Genitourinary: Negative. Musculoskeletal: Negative for neck pain. Neurological: Negative for headaches. Objective Physical Exam Constitutional: Appearance: Normal appearance. Cardiovascular: Rate and Rhythm: Normal rate and regular rhythm. Pulses: Normal pulses. Heart sounds: Normal heart sounds. Pulmonary: Effort: Pulmonary effort is normal. Neurological: Mental Status: She is alert. Assessment/Plan Diagnoses and all orders for this visit: Chronic pain of right knee Comments: Xray ordered today Advised Tylenol and Ice Advised to keep active Orders: - XR Knee 1-2 Views Right; Future Other orders - acetaminophen (Tylenol Extra Strength) 500 MG tablet; Take 1 tablet (500 mg) by mouth every 6 (six) hours if needed for mild pain for up to 10 days. - Diclofenac Sodium (Voltaren) 1 % gel; Use topical BID documented in this encounter Plan of Treatment Upcoming Encounters Date Type Department Care Team ([facility] st Contact Info) Description 05/06/2025 9:15 AM EDT Office Visit [facility] MED & PEDS [address] [place] [address] Vannessa Sorto MD [address] [place] [address] documented as of this encounter Procedures Procedure Name Priority Date/Time Associated Diagnosis Comments XR KNEE 1-2 VIEWS RIGHT Routine 02/03/2025 9:47 AM EST Chronic pain of right knee documented in this encounter Results * XR Knee 1-2 Views Right (02/03/2025 9:47 AM EST) Anatomical Region Laterality Modality Lower Extremities, Knee Right Radiogra phic Imaging 02/03/2025 9:47 AM EST Narrative 02/03/2025 10:27 AM EST ? [facility] ?[address] ?[place] [address] ?XRay Report ? Signed ? Patient: Marcella Pacheco ?MR#: [id number] ?? 73 ? : 1990 ?Acct:[id number] ? Age/Sex: 34 / F ?ADM Date: 02/03/25 ? Loc: HO.XRAY ? Attending Dr: Margarita Cobb MD ? Ordering Physician: Margarita Cobb MD ?? Date of Service: 02/03/25 ?? Procedure(s): XR knee RT 2V ?? Accession Number(s): [id number] ? cc: Vannessa Sorto MD; Margarita Cobb MD ? EXAMINATION: ?? XR KNEE, RIGHT ? CLINICAL INFORMATION: ?? pain ? COMPARISON: ?? None available. ? TECHNIQUE: ?? Four views of the right knee. ? FINDINGS: ?? No fracture or joint effusion. Alignment is anatomic. Joint spaces are ?? maintained. No abnormal soft tissue calcification. ? XR/XR knee RT 2V ?? IMPRESSION: ?? Unremarkable right knee. ? Electronically signed by: ??Joseph Shayla MD ??02/03/2025 10:25 AM EST RP ? Dictated By: ?Shayla,Joseph S MD ? Signed By: ?<Electronically signed by Joseph S Shayla, MD in OV> ?02/03/25 1025 ? DD/ 0947 ? TD/TT: 02/03/25 1020 ? Corporate Sales Manager: MSM ? Procedure Note Donotangellater, Image - 02/03/[address] [address] XRay Report Signed Patient: Richi Pacheco#: [id number] 73 : 1990Acct:[id number] Age/Sex: 34 / FADM Date: 02/03/25 Loc: HO.[facility] Attending Dr: Margarita Cobb MD Ordering Physician: Margarita Cobb MD Date of Service: 02/03/25 Procedure(s): XR knee RT 2V Accession Number(s): [id number] cc: Vannessa Sorto MD; Margarita Cobb MD EXAMINATION: XR KNEE, RIGHT CLINICAL INFORMATION: pain COMPARISON: None available. TECHNIQUE: Four views of the right knee. FINDINGS: No fracture or joint effusion. Alignment is anatomic. Joint spaces are maintained. No abnormal soft tissue calcification. XR/XR knee RT 2V IMPRESSION: Unremarkable right knee. Electronically signed by: Joseph Mcguire MD 02/03/2025 10:25 AM [facility] Dictated By: Joseph Mcguire MD Signed By: <Electronically signed by Joseph Mcguire MD in OV> 02/03/25 1025 DD/ 0947 TD/TT: 02/03/25 1020 Corporate Sales Manager: [facility] Margarita Cobb MD IMG XR PROCEDURES Edited Result - Final documented in this encounter Visit Diagnoses Diagnosis Chronic pain of right knee- Primary documented in this encounter Additional Health Concerns Assessment Noted Time PHQ-9 Depression Total Score: 6 05/15/20 23 11:24 AM EDT documented as of this encounter Care Teams Ed Educational Aide Relationship Specialty Start Date End Date Vannessa Sorto MD [address] [place] [id number] PCP - General Internal Medicine 12/07/11 documented as of this encounter
--- OUTSIDE RECORDS SUMMARY | 2025-02-03 11:00 | XMS_ITS | Clinical Summary ---
Author Organization [employer] Address [address] [facility] [address] [place] [address] Care Team Providers Care Application Integration Specialist Name Role Phone Vannessa Sorto MD Primary Care Provider Allergies Active Allergy Reactions Criticality Noted Date Comments Sulfa Antibiotics Fever 08/15/2017 Other reaction(s): muscle aches, dizziness, high fever Trimethoprim Fever 08/15/2017 Medications FeroSul 325 (65 Fe) MG tabletIndications :Other iron deficiency anemia TAKE 1 TABLET BY MOUTH EVERY MORNING WITH BREAKFAST(DO NOT CRUSH,CHEW OR SPLIT) 90 tablet 1 3 Active benztropine (Cogentin) 0.5 MG tablet Take 0.75 mg by mouth at bedtime. 2 Active cholecalciferol (Vitamin D-3) 250 MCG (60893 UT) capsule TAKE 1 CAPSULE BY MOUTH 2 TIMES A WEEK FOR 90 DAYS 2 Active cloNIDine (Catapres) 0.1 MG tablet Take 1 tablet by mouth every 12 (twelve) hours. Active Linzess 145 MCG capsule Take 145 mcg by mouth in the morning. 2 Active docusate sodium (Colace) 100 MG capsule TAKE 1 TO 2 CAPSULES BY MOUTH EVERY DAY AT BEDTIME NEEDED 2 Active Ventolin HFA 108 (90 Base) MCG/ACT inhalerIndication s:Mild intermittent asthma without complication Inhale 2 puffs every 6 (six) hours if needed for wheezing. 18 g 11 4 Active acetaminophen (Tylenol Extra Strength) 500 MG tablet Take 1 tablet (500 mg) by mouth every 6 (six) hours if needed for mild pain for up to 10 days. 30 tablet 5 02/14/20 25 Active Diclofenac Sodium (Voltaren) 1 % gel Use topical BID 100 g 3 Active Active Problems Problem Noted Date Diagnosed Date Anxiety 05/15/2023 Depression 05/15/2023 Environmental allergies 05/15/2023 Gastroparesis 05/15/2023 GERD without esophagitis 05/15/2023 Iron deficiency anemia 05/15/2023 Asthma 02/22/2014 Encounters Date Type Department Care Team Description 02/03/2025 8:45 AM EST Office Visit [facility] [address] [place] [address] Margarita Cobb MD Chronic pain of right knee (Primary Dx) 02/03/2025 Travel 01/26/2025 Telephone [facility] [address] [place] [address] Vannessa Sorto MD Nurse Triage 01/22/2025 Telephone [facility] [address] [place] [address] Vannessa Sorto MD No Show 01/21/2025 Telephone [facility] [address] [place] [address] Vannessa Sorto MD Nurse Triage from Last 3 Months Family History Medical History Relation Name Comments Diabetes type II Father Esophageal cancer Father's Brother Multiple sclerosis Mother Relation Name Status Comments Father Father's Brother Mother Social History Tobacco Use Types Packs/Day Years [...] Orientation Straight 10/01/2022 10 :22 AM EDT Last Filed Vital Signs Vital Sign Reading [...] Mass Index 28.8 02/03/2025 8:47 AM EST Plan of Treatment Upcoming Encounters Date Type Department Care Team (Late st Contact Info) Description 05/06/2025 9:15 AM EDT Office Visit [facility] [address], [place] [phone] Vannessa Sorto MD [address] [place], [place] [phone] Health Maintenance Due Date Last Done Comments HIV Screening 1990 SDOH Screening 1990 Alcohol/Substance Use Screening 2002 Hepatitis C Screening 2008 Pneumococcal Vaccine: Pediatrics (0 to 5 Years) and At-Risk Patients (6 to 49) Years) (1 of 2 - PCV) 2009 HPV/Cotest 2020 Depression Screening 05/15/2024 05/15/2023, 05/15/20 23 COVID-19 Vaccine ( season) 2024 08/24/2023, 01/03/2022, 04/27/2021, Additional history exists Influenza Vaccine (#1) 2024 9, 09/23/2018, 10/22/2017, Additional history exists Family Planning (PISQ) 04/07/2025 04/07/2024 DTaP/Tdap/Td Vaccines (8 - Td or Tdap) 12/21/2025 12/21/2015, 09/16/2008, 07/15/2002, Additional history exists Tobacco Screening 02/03/2026 02/03/2025 Cervical Cancer Screening 06/25/2026 Pap Smear 06/25/2026 06/25/2023 Zoster Vaccines (1 of 2) 2040 RSV Patients and Patients Aged 60 years or older (1 - 1-dose 75+ series) 2065 HIB Vaccines Completed 09/01/1996, 12/1991, 07/02/1991, Additional history exists IPV Vaccines Completed 09/01/1996, 12/1991, 03/02/1991, Additional history exists Hepatitis B Vaccines Completed 03/26/2003, 12/22/2002, 11/20/2002 Meningococcal Vaccine Completed 09/16/2008 HPV Vaccines Aged Out No longer eligi ble based on patient's age to complete this topic Hepatitis A Vaccines Aged Out No long er eligible based on patient's age to complete this topic RSV under 20 months Aged Out No longe r eligible based on patient's age to complete this topic Rotavirus Vaccines Aged Out No longer eligible based on patient's age to complete this topic Procedures Procedure Name Priority Date/Time Associated Diagnosis Comments XR KNEE 1-2 VIEWS RIGHT Routine 02/03/2025 9:47 AM EST Chronic pain of right knee PAP SMEAR Routine 06/25/2023 10:45 AM EDT Encounter for gynecological examination with Papanicolaou smear of cervix from Last 3 Months or Most Recently Relevant to Health Maintenance Results * XR Knee 1-2 Views Right (02/03/2025 9:47 AM EST) Anatomical Region Laterality Modality Lower Extremities, Knee Right Radiogra phic Imaging 02/03/2025 9:47 AM EST Narrative 02/03/2025 10:27 AM EST ? [facility] ?[address] ?[place] [address] ?XRay Report ? Signed ? Patient: Czausz,Marcella ?MR#: [id number] ?? 73 ? : 1990 ?Acct:[id number] ? Age/Sex: 34 / F ?ADM Date: 03/05/25 ? Loc: HO.XRAY ? Attending Dr: Margarita Cobb MD ? Ordering Physician: Margarita Cobb MD ?? Date of Service: 02/03/25 ?? Procedure(s): XR knee RT 2V ?? Accession Number(s): [id number] ? cc: Vannessa Sorto MD; Margarita Cobb [...] right knee. ? Electronically signed by: ??Joseph Mcguire MD ??02/03/2025 10:25 AM EST RP ? Dictated By: ?Joseph Mcguire MD ? Signed By: ?<Electronically signed by Joseph Mcguire MD in OV> ?02/03/25 1025 ? DD/ 0947 ? TD/TT: 02/03/25 1020 ? Bobtail Driver: MSM ? Procedure Note Matilde, Image - 02/03/[address] [address] XRay Report Signed Patient: Richi Pacheco#: [id number] 73 : 1990Acct:[id number] Age/Sex: 34 / FADM Date: 02/03/25 Loc: [facility] Attending Dr: Margarita Cobb MD Ordering Physician: Margarita Cobb MD Date of Service: 02/03/25 Procedure(s): XR knee RT 2V Accession Number(s): [id number] cc: Vannessa Sorto MD; Margarita Cobb MD EXAMINATION: XR KNEE, RIGHT CLINICAL INFORMATION: pain COMPARISON: None available. TECHNIQUE: Four views of the right knee. FINDINGS: No fracture or joint effusion. Alignment is anatomic. Joint spaces are maintained. No abnormal soft tissue calcification. XR/XR knee RT 2V IMPRESSION: Unremarkable right knee. Electronically signed by: Joseph Mcguire MD 02/03/2025 10:25 AM EST Dictated By: Joseph Mcguire MD Signed By: <Electronically signed by Joseph Mcguire MD in OV> 02/03/25 1025 DD/ 0947 TD/TT: 02/03/25 1020 Bobtail Driver: SERENE us Margarita Cobb MD IMG XR PROCEDURES Edited Result - Final * Pap Smear (06/25/2023 10:45 AM EDT) Swab Cervical swab / Unknown 06/25/2023 10:45 AM EDT 06/27/2023 8:30 AM EDT Narrative [facility] - 07/10/2023 1:40 PM EDT ----- ------- Name: Marcella Pacheco ? Age/Sex: 32/F ? : 1990 Unit#: [id number] ?? Attend Dr: Margareth Tariq MD ?Re06/25/23 ?Status: DEP REF ? Location: HO.CHCLNP ? Disch: ? ----- ------- SPEC : [id number] ?RECD: 06/27/23-829 ? STATUS: ??SOUT ? REQ NUM: [id number] ? ISAAC: 06/25/23-5 ? SUBM DR: Margareth Tariq MD ? ENTERED: ??06/27/23-0 ?SP TYPE: Pap Smr ?OTHR DR: ? ORDERED: ??Pap Smear ? Interpretation ?? Satisfactory for evaluation. ?? No endocervical cells seen. ?? Mild inflammation. ?? Negative for intraepithelial lesion or malignancy. ?Clinical Information LMP: 05/02/23 Previous PAP test: Unknown date/findings ? Material Received ?? ThinPrep-Vaginal ----- ------- Signed (signature on file) JUNIOR Mcmanus ([facility]) 07/10/23 1340 ? ----- ------- ? END OF REPORT ? us Margareth Tariq MD LAB CYTOLOGY ORDERABLES Final Result [facility] [address] [place] [address] [phone] from Last 3 Months or Most Recently Relevant to Health Maintenance Insurance [place], [place] [employer] * Guarantor: Marcella Pacheco Account Type Relation to Patient Date of Phone Billing Address Personal/Family Self [facility] ID * Guarantor: Marcella Pacheco Account Type Relation to Patient Date of Phone Billing Address Personal/Family Self [facility] ID * Guarantor: Marcella Pacheco Account Type Relation to Patient Date of Phone Billing Address Personal/Family Self [facility] ID Care Teams Application Integration Specialist Relationship Specialty Start Date End Date Vannessa Sorto MD NPI: [id number] [place] [id number] PCP - General Internal Medicine 12/07/11
--- OUTSIDE RECORDS SUMMARY | 2025-02-03 11:00 | XMS_ITS | Encounter Summary ---
Author Organization [employer] Address [address] [place] [address] [address] [place] [address] Care Team Providers Care Spool Carrier Name Role Phone Vannessa Sorto MD Primary Care Provider Reason for Visit * Reason Onset Date Comments No Show 01/22/2025 Encounter Details Date Type Department Care Team (Late Contact Info) Description 01/22/2025 Telephone [facility] [address] [place] [address] Vannessa Sorto MD [address] [place] [address] No Show Social History Tobacco Use Types Packs/Day Years [...] encounter Miscellaneous Notes * Telephone Encounter - Dave Wyatt - 01/22/2025 2:28 PM EST No Show 01/22/25 for right knee pain documented in this encounter Plan of Treatment Upcoming Encounters Date Type Department Care Team (Late Contact Info) Description 05/06/2025 9:15 AM EDT Office Visit [facility] [address] [place] [address] Vannessa Sorto MD [address] [place] [address] documented as of this encounter Visit Diagnoses Not on filedocumented in this encounter Additional Health Concerns Assessment Noted Time PHQ-9 Depression Total Score: 6 05/15/20 23 11:24 AM EDT documented as of this encounter Care Teams Spool Carrier Relationship Specialty Start Date End Date Vannessa Sorto MD [address] [place] [address] PCP - General Internal Medicine 12/07/11 documented as of this encounter
--- OUTSIDE RECORDS SUMMARY | 2025-02-03 11:00 | XMS_ITS | Encounter Summary ---
Author Organization [employer] Address [address] [facility] [address]t [place] [address] Care Team Providers Care Electronic Publishing Specialist Name Role Phone Vannessa Sorto MD Primary Care Provider Reason for Visit * Reason Onset Date Comments Nurse Triage 01/26/2025 Encounter Details Date Type Department Care Team ([facility] st Contact Info) Description 01/26/2025 Telephone C [facility] [address] [place] [address] Vannessa Sorto MD [address] [place] [address] Nurse Triage Social History Tobacco Use Types [...] encounter Miscellaneous Notes * Telephone Encounter - Susan Brown RN - 01/26/2025 12:43 PM EST Called pt. She states that she has been having right knee pain for a few months now. Over the past few days, pt. Has been having increased pain on knee cap. Pt. Is wearing a knee brace but, is havinga hard time getting up and walking. Pt. Goes to PT for tightened pelvic muscles and her PT therapist told her to get her knee checked out. Pt. Does kneel a lot she states. Advised to continue brace, t kaylin Tylenol for pain and elevate,rest and ice to knee. Protocol Used: Knee Pain (Adult) Protocol-Based Disposition: See in Office or Video Visit within 3 Days- Pt requesting appt. For 02/03/25 in am. Appt given for 845am. Video visit offer not recorded Positive Triage Questions: * Moderate pain (e.g., symptoms interfere with work or school, limping) and present > 3 days * Patient wants to be seen * All higher-acuity triage questions were negative Care Advice Discussed: * Pain Medicines * Using Heat for Pain * Rest * Telephone Encounter - Carolin Dickey - 01/26/2025 12:27 PM EST Symptom: Knee Pain - Not From Injury Outcome: Schedule an appointment to be seen within 24 hours Reason: Caller denied all higher acuity questions The caller accepted this outcome. documented in this encounter Plan of Treatment Upcoming Encounters Date Type Department Care Team (Late st Contact Info) Description 05/06/2025 9:15 AM EDT Office Visit [facility] [address] [place] [address] Vannessa Sorto MD [address] [place] [address] documented as of this encounter Visit Diagnoses Not on filedocumented in this encounter Additional Health Concerns Assessment Noted Time PHQ-9 Depression Total Score: 6 05/15/20 23 11:24 AM EDT documented as of this encounter Care Teams Electronic Publishing Specialist Relationship Specialty Start Date End Date Vannessa Sorto MD [address] [place] [address] PCP - General Internal Medicine 12/07/11 documented as of this encounter
--- OUTSIDE RECORDS SUMMARY | 2025-02-03 11:00 | XMS_ITS | Encounter Summary ---
Author Organization [employer] Address [address] [facility] [address] [place] [address] Care Team Providers Care Air Hose Coupler Name Role Phone Vannessa Sorto MD Primary Care Provider Encounter Details Date Type Department Care Team (Latest Contact Info) Description 02/03/2025 Travel Social History Tobacco Use Types Packs/Day Years [...] Description 05/06/2025 9:15 AM EDT Office Visit [facility] [address] [place] [address] Vannessa Sorto MD [address] [place] [address] documented as of this encounter Visit Diagnoses Not on filedocumented in this encounter Additional Health Concerns Assessment Noted Time PHQ-9 Depression Total Score: 6 05/15/20 23 11:24 AM EDT documented as of this encounter Care Teams Air Hose Coupler Relationship Specialty Start Date End Date Vannessa Sorto MD [address] [place] [address] PCP - General Internal Medicine 12/07/11 documented as of this encounter
--- OUTSIDE RECORDS SUMMARY | 2025-02-03 11:00 | XMS_ITS | Encounter Summary ---
Author Organization [employer] Address [address] [facility] [address]t [place] [address] Care Team Providers Care Slitting And Shipping Supervisor Name Role Phone Vannessa Sorto MD Primary Care Provider Encounter Details Date Type Department Care Team (Late st Contact Info) Description 05/21/2023 Orders Only [facility] [address] [place], [place] [phone] Vannessa Sorto MD [address] [place] [address] Urinary frequency (Primary Dx) Social History Tobacco Use Types Packs/Day Years Used Date Smoking Tobacco: Never Smokeless Tobacco: Never Alcohol Use Standard Drinks/Week Comments Never 0 (1 standard drink = 0.6 oz pur e alcohol) Depression Answer Date Recorded Patient Health Questionnaire-9 Score 6 05/15/2023 Depression Answer Date Recorded Patient Health Questionnaire-2 Score 0 05/15/2023 Comments Unknown Sex and Gender Information Value Date Recorded Sex Assigned at Female 10/01/2022 10:22 AM EDT Legal Sex Female 10:22 AM EDT Gender Identity Female 10/01/2022 10:22 AM EDT Sexual Orientation Straight 10/01/2022 10 :22 AM EDT COVID-19 Exposure Response Date Recorded In the last 10 days, have yo u been in contact with someone who was confirmed or suspected to have Coronavirus/COVID-19? No / Unsure 05/15/2023 9:46 AM EDT documented as of this encounter Plan of Treatment Upcoming Encounters Date Type Department Care Team (Late st Contact Info) Description 05/06/2025 9:15 AM EDT Office Visit [facility] [address] [place] [address] Vannessa Sorto MD [address] [place] [address] documented as of this encounter Visit Diagnoses Diagnosis Urinary frequency- Primary documented in this encounter Additional Health Concerns Assessment Noted Time PHQ-9 Depression Total Score: 6 05/15/20 23 11:24 AM EDT documented as of this encounter Care Teams Slitting And Shipping Supervisor Relationship Specialty Start Date End Date Vannessa Sorto MD [address] [place] [address] PCP - General Internal Medicine 12/07/11 documented as of this encounter
== END 2025-02-03 09:38 | disposition home or self-care (01) ==
LOC: HO.XRAY 09:37
PROVIDERS: PCP Internal Medicine; Visit Provider Student in an Organized Health Care Education/Training Program
DX: M25.561 Pain in right knee (principal); G89.29 Other chronic pain
CPT/HCPCS: 73560

== ENCOUNTER → 2025-02-03 09:47 | Outpatient (BNV) | payer MEDICAID, SELFPAY | PROVIDERS: PCP Internal Medicine; Visit Provider Radiology Diagnostic Radiology | DX: M25.561 Pain in right knee (principal) | CPT/HCPCS: 73560 ==

== ENCOUNTER 2025-05-27 08:10 | Outpatient (REF) | payer MEDICAID, SELFPAY ==
[2025-05-27 09:17] LABS: MANUAL DIFF FLAG NO
[2025-05-27 09:44] LABS: Basophils Percent Auto 0.6 % (0-2); Eosinophils Absolute Auto 0.1 X10*3/uL (0.0-0.4); Eosinophils Percent Auto 1.9 % (0-4); Hematocrit 37.6 % (37.0-47.0); Hemoglobin 12.2 g/dl (12.0-16.0); Imm Gran Abs Auto 0.03 X10*3/uL (0.00-0.03); Imm Gran Pct Auto 0.4 % (0.0-0.4); Lymphocytes Absolute Auto 2.7 X10*3/uL (1.2-4.9); Lymphocytes Percent Auto 38.3 % (20-40); Mean Corpuscular HGB Conc 32.4 g/dl (31.0-35.0); Mean Corpuscular Hemoglobin 27.4 pg (27.0-33.0); Mean Corpuscular Volume 84.5 fL (80.0-98.0); Mean Platelet Volume 10.1 fL (9.4-12.3); Monocytes Absolute Auto 0.4 X10*3/uL (0.1-1.2); Monocytes Percent Auto 5.2 % (2-11); Neutrophils Absolute Auto 3.8 x10*3/uL (2.0-8.3); Neutrophils Percent Auto 53.6 % (45-73); Platelet Count 379 X10*3/uL (160-400); Red Blood Count 4.45 X10*6/uL (4.20-5.50); Red Cell Distribution Width 13.2 % (11.0-16.0)
[2025-05-27 10:11] LABS: Alanine Aminotransferase 15 U/L (0-31); Albumin Level 4.7 g/dL (3.5-5.0); Alkaline Phosphatase 57 U/L (39-117); Anion Gap 11 (12-20); Aspartate Amino Transferase 19 U/L (5-31); Bilirubin Total 0.3 mg/dL (0.0-1.0); Blood Urea Nitrogen 12 mg/dL (9-16); Calcium 9.1 mg/dL (8.4-10.2); Carbon Dioxide 24 mmol/L (22-29); Chloride 109 mmol/L (96-108); Estimated Glomerular Filt Rate > 60; Glucose Fasting 99 mg/dL (60-99); Glucose Random 100 mg/dL (60-115); Lipase 27 U/L (8-78); Potassium 3.7 mmol/L (3.3-5.1); Sodium 140 mmol/L (135-145); Total Protein 7.8 g/dL (6.5-8.0)
[2025-05-27 10:16] LABS: Estimated Average Glucose 103 mg/dL; Hemoglobin A1c % 5.2 % (<6.0)
[2025-05-27 10:39] LABS: Ferritin 17 ng/mL (10-122); Vitamin D 25-OH Total 28.9 ng/mL (>30)
[2025-05-27 10:41] LABS: Folate 10.2 ng/mL (> or = 4.0); Vitamin B12 870 pg/mL (200-900)
[2025-05-27 10:54] LABS: Insulin 12 uU/mL (2-29)
[2025-06-07 15:34] LABS: FIB-ALT 12 U/L (6-29); FIB-Alpha-2-Macroglobulin 182 mg/dL (106-279); FIB-Apolipoprotein A1 134 mg/dL (101-198); FIB-GGT 17 U/L (3-50); FIB-Haptoglobin 268 mg/dL (43-212); FIB-Total Bilirubin 0.2 mg/dL (0.2-1.2); Liver Fibrosis Score 0.03; Liver Fibrosis Stage F0; Nec Inflam Act Grade A0; Nec Inflam Act Score 0.02
== END 2025-05-27 08:11 | disposition home or self-care (01) ==
LOC: HO.LAB 08:10
PROVIDERS: Absent Provider Registered Nurse Psychiatric/Mental Health; PCP Internal Medicine; Visit Provider Internal Medicine Gastroenterology
DX: K31.84 Gastroparesis (principal); K21.9 Gastro-esophageal reflux disease without esophagitis; K59.00 Constipation, unspecified; Z79.899 Other long term (current) drug therapy
CPT/HCPCS: 36415; 80053; 81596; 82306; 82607; 82728; 82746; 83036; 83525; 83690; 84146; 85025; 99212

== ENCOUNTER 2025-05-27 08:10 | Outpatient (AMB) | payer MEDICAID, SELFPAY ==
--- NOTE | 2025-05-27 08:17 | MHC.OFFVIS ---
Vital Signs 05/27/25 08:22 Height 5 ft 6 in Weight 163 lb BMI 26.3 BP 98/69 Blood Pressure Location Lt brachial Position Sitting Pulse 103 H Oxygen Delivery Method Room Air Oxygen Flow Rate 97 Intake Visit Reasons: follow up constipation Intake Note: Patient follow up for constipation. Patient cc: abdominal pain with bloating, vomiting on and off, heartburn with burping, constipation is much better with physical therapy and needed refillon Ondansetron. Retail Support Manager Required: No Accompanied by: Self / Same As Patient Allergies Sulfa (Sulfonamide Antibiotics) Allergy (Unknown, Verified 05/27/25 08:15) muscle aches, dizziness, high fever Medication List - Last Reconciled 05/27/25 by Moira Lang MD benztropine 0.5 mg PO DAILY cholecalciferol (vitamin D3) 250 mcg PO 2XW 90 days clonidine HCl 0.1 mg PO BEDTIME hydroxyzine HCl 5 - 10 mg PO DAILY PRN metoclopramide HCl 5 mg PO BID 90 days ondansetron 4 mg PO Q8H PRN 30 days pantoprazole 40 mg PO BID 90 days quetiapine ER (Seroquel XR) 400 mg PO QPM sennosides-docusate sodium 8.6-50 mg (Stimulant Laxative Plus) 2 tabs PO BEDTIME sumatriptan succinate (Imitrex) 25 mg PO Q2-4H PRN 60 days HPI HPI follow up constipation: Details: GI clinic visit for this 34 YF for FU of GERD, gastroparesis and colon polyps. Pt is a special needs person. CHRONIC ILLNESSES:?asthma, gastroesophageal reflux disease (GERD), environmental allergies, depression, anxiety TODAY'S VISIT Patient cc: abdominal pain with bloating, vomiting on and off, heartburn with burping, constipation is much better with physical therapy and needed refillon Ondansetron Saw Pelvic floor therapist at [facility] and was told pelvic muscles were too tight and symptoms are improving with PT. Drinks liquids to stay hydrated. Has been burping up her food and feeling full fast - has not been eating her dinner well. PAST VISITS: EGD results were reviewed with the patient. Notes improvement in dysphagia and early satiety. She was constipated yesterday - took Linzess and Dulcolax and had diarrhea and vomiting. Advised to take Linzess every other day (gets diarrhea if she takes it daily) PAST VISIT: Patient cc: swallowing difficulty with solid food. Denies any other G issue for today. 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 Has been eating less Notes pressure in the chest and takes a while for the food to pass down in the stomach Denies regurgitation. Unable to swallow sandwiches Taking Linzess a few times a week which is helping with constipation. Taking small meals. BMs are hard and painful Still has hemorrhoids Planning to try apple cider vinegar with honey for constipation. Patient cc: nauseas, constipation, burping/gassy, and some acid reflex with food coming out her throat. She is making herself eat but something still does not feel right. Had COVID during tono vacation and had severe stomach ache, nausea, vomiting and diarrhea Has had chronic nausea ever since and trying to make herself eat. Has constipation since she does not drink enough fluids. Feels hungry all the time and has been snacking on carbs Has been gaining weig [facility] Medical History (Updated 12/26/23 @ 11:18 by Moira Lang MD) Hx of flexible sigmoidoscopy Gastroparesis GERD without esophagitis Anxiety Depression Environmental allergies Asthma Surgical History Hx of colonoscopy Hx of breast biopsy Hx of breast reconstruction Hx of esophagogastroduodenoscopy Family History Father Alive and well Mother Alive and well Paternal Uncle Esophageal and gastric varices Esophageal cancer Social History Household Members: Family Alcohol intake: never Patient Tobacco Use Status: Never used Tobacco Current occupational status: unemployed Review of Systems Const All systems reviewed & are unremarkable except as noted in HPI and below Physical Exam Const General: healthy appearing and no acute distress Nutritional Appearance: overweight Orientation/consciousness: patient oriented x3 Limitations: other limitations (Patient is a special needs person) HEENT Head: Yes normal to inspection Ears: hearing grossly normal bilaterally Eyes Sclerae: sclerae normal Pupils: Equal, round and reactive pupils present Neck Neck: Yes normal visual inspection Chest Chest palpation & inspection: normal inspection of the chest Resp Effort & Inspection: normal respiratory effort Auscultation: clear to auscultation bilaterally Cardio Palpation: normal PMI Rate: regular rate Rhythm: regular rhythm Heart sounds: S1 normal heart sound present, S2 normal heart sound present and no murmurs GI Palpation (GI): Soft to palpation, nontender and No hepatosplenomegaly present Auscultation: normal bowel sounds Rectal Exam - Female: deferred Skin General skin exam: no rashes or lesions noted Neuro General: patient oriented x3, gait normal and moves all extremities Cranial nerves: Yes Equal, round and reactive pupils present Psych Appearance: grossly normal Mental Status: mental status grossly normal Assessment & Plan Assessment & Plan (1) GERD without esophagitis: Code(s): K21.9 - Gastro-esophageal reflux disease without esophagitis Category: Medical (2) Nausea: Code(s): R11.0 - Nausea Category: Medical (3) Gastroparesis: Code(s): K31.84 - Gastroparesis Category: Medical (4) Constipation: Code(s): K59.00 - Constipation, unspecified Category: Medical Plan 34 YF with special needs, asthma, gastroesophageal reflux disease (GERD), environmental allergies, depression, anxiety followed in GI for symptoms of heartburn, early satiety and intermittent postprandial regurgitation. 12/24/19 EGD showed gastritis with a tight pylorus which was dilated with an 18 mm balloon. Small bowel and esophageal biopsies were normal. Gastric biopsies were negative for H pylori. Patient notes partial improvement in her symptoms since EGD with balloon dilation of pylorus was performed. Gastric emptying study showed Gastroparesis: (03/2020 GES showed 68% retention at 4 hours) Patient was advised to switch omeprazole from bedtime to 20-30 minutes before breakfast and take 5-6 small meals a day in the interim. Continue Metoclopramide 5 mg twice daily before lunch and dinner. Patient handout on gastroparesis was mailed to the patient with her after visit summary at the time of a previous visit. Pt noted increased symptoms after Thanksgiving which have improved. 11/22/22 Pt complains of intermittent upper abdominal pain. She was advised further evaluation with an [facility] [place] 03/2023 EGD with pyloric Botox injection and repeat balloon dilation was performed. (OF note - pt reports getting hungry a lot and has been eating) Same day flexible sigmoidoscopy showed adenomatous appearing polyps in the left colon (Of note stool FIT test was negative in 01/2023). To take Linzess 145 mcg every other day for constipation 07/2023 colonoscopy was performed and findings as noted above 08/01/23 Pt stopped Linzess due to diarrhea - prescribed a lower dose of 72 mcg daily Prescribed low dose Imitrex for migraine HAs 12/26/23 Had COVID during tono vacation and had severe stomach ache, nausea, vomiting and diarrhea Has had chronic nausea ever since and trying to make herself eat and prescribed ondansetron p.r.n. for nausea Has constipation since she does not drink enough fluids. Feels hungry all the time and has been snacking on carbs Has been gaining weight 05/07/24 BMs are hard and painful Still has hemorrhoids Planning to try apple cider vinegar with honey for constipation Pt advised to: 1. Start taking Linzess (Linaclotide) every other day 2. Start Pantoprazole for GERD instead of Omeprazole (If approved by her insurance). 10/01/24 Having trouble swallowing - mostly solids. Has been eating less Notes pressure in the chest and takes a while for the food to pass down in the stomach 10/02/24 EGD with balloon dilation and pyloric botox injection was performed 10/16/24 EGD results were reviewed with the patient. Notes improvement in dysphagia and early satiety. She was constipated yesterday - took Linzess and Dulcolax and had diarrhea and vomiting. Advised to take Linzess every other day (gets diarrhea if she takes it daily) 05/27/25 Has been burping up her food and feeling full fast Constipation is improving with pelvic floor therapy. Patient advised to schedule an upper endoscopy with Botox injection and pyloric balloon dilation. Schedule a GES to FU on Gastroparesis (last GES was performed in 2019) Follow-up appointment in 3 months Orders: Orders Comprehensive Met. Panel Today K21.9 - Gastro-esophageal reflux disease without esophagitis, K31.84 - Gastroparesis NM gastric emptying study Today K31.84 - Gastroparesis Vitamin D 25-OH Total Today K31.84 - Gastroparesis Ferritin Today K31.84 - Gastroparesis Complete Blood Count Auto Diff Today K21.9 - Gastro-esophageal reflux disease without esophagitis, K31.84 - Gastroparesis Lipase Today K21.9 - Gastro-esophageal reflux disease without esophagitis, K31.84 - Gastroparesis Vitamin B12 and Folate Today K31.84 - Gastroparesis Liver Fibrosis Pnl Today K31.84 - Gastroparesis EGD - GI Use Only Today K31.84 - Gastroparesis Medications: Refilled ondansetron 4 mg PO Q8H PRN 30 tabs 0RF nausea and vomiting 30 days R11.0 - Nausea Coding Level of Care Code Est Pt Level 4 (26066) Diagnoses GERD without esophagitis K21.9 Nausea R11.0 Gastroparesis K31.84 Constipation K59.00 Time Spent (min) 19
[2025-05-27 08:22] VITALS: BP 98/69; PULSE 103; BMI 26.3
--- OUTSIDE RECORDS SUMMARY | 2025-05-27 08:22 | XMS_ITS | Encounter Summary ---
Author Organization [employer] Address [address] [place] [address] Care Team Providers Care Computational Linguist Name Role Phone Vannessa Sorto MD Primary Care Provider [phone] Encounter Details Date Type Department Care Team (Latest Contact Info) Description 05/04/2019 Abstract [facility] CONVERSIONS Dental, Provider, DDS Social History Tobacco Use Types Packs/Day Years Used Date Smoking Tobacco: Never Assessed Comments Unknown Sex and Gender Information Value Date Recorded Sex Assigned at Female 10/01/2022 10:22 AM EDT Legal Sex Female 10:22 AM EDT Gender Identity Female 10/01/2022 10:22 AM EDT Sexual Orientation Straight 10/01/2022 10 :22 AM EDT documented as of this encounter Plan of Treatment Not on file documented as of this encounter Visit Diagnoses Not on filedocumented in this encounter Care Teams Computational Linguist Relationship Specialty Start Date End Date Vannessa Sorto MD [address] [place] [address] PCP - General Internal Medicine 12/07/11 documented as of this encounter
== END 2025-05-27 08:45 | disposition home or self-care (01) ==
LOC: HO.HGI 08:11
PROVIDERS: PCP Internal Medicine; Visit Provider Internal Medicine Gastroenterology
DX: K21.9 Gastro-esophageal reflux disease without esophagitis (principal); R11.0 Nausea; K31.84 Gastroparesis; K59.00 Constipation, unspecified
CPT/HCPCS: 99214

== ENCOUNTER 2025-06-28 11:40 | Day surgery (SDC) | payer MEDICAID, SELFPAY ==
[2025-06-24 14:45] VITALS: BMI 26.3
[2025-06-28 11:44] VITALS: BP 113/78; PULSE 94; RESP 16; TEMP 36.9; O2SAT 98
[2025-06-28 12:00] LABS: UPreg QC Valid YES
[2025-06-28] MEDS: Lactated Ringers 1,000 ML 100 ML IVCONT (12:06)
--- NOTE | 2025-06-28 12:12 | MHC.SHP ---
Pre-Procedural Eval Section A - 24 Hr Update-Section A only Date of Service: 06/28/25 The patient is an INPATIENT: No The patient has been examined within 24 hours of the surgical procedure. The History & Physical has been completed within 30 days and I have reviewed it.: No Section B - Complete if H&P > 30 days Chief Complaint: Gastroparesis Relevant Family History (Specify if Yes): Yes Relevant Social History: None Present Medications: see Short Stay Collaborative assessment Medical History: Significant History (Gastroparesis GERD without esophagitis Anxiety Depression Environmental allergies Asthma) History of Previous Operations: Relevant previous surgery/procedure and date(s) (Hx of colonoscopy Hx of breast biopsy Hx of breast reconstruction Hx of esophagogastroduodenoscopy) Allergies: Allergies Allergy/AdvReac Type Severity Reaction Status Date / Time Sulfa (Sulfonamide Allergy Unknown muscle Verified 05/27/25 08:15 Antibiotics) aches, dizziness, high fever Review of Systems Sugical H&P ROS: Negative: Constitution, Cardiovascular and Respiratory and Yes, Specify: Gastrointestinal (early satiety) Exam Surgical H&P Exam: Normal: Heart, Normal: Lungs, Normal: Extremities and Normal: Abdomen Plan Diagnosis/Plan: Unchanged I have reviewed the history and physical and performed a pertinent physical examination on my patient. No changes have occurred unless specified. Time Spent With Patient Time: Total time managing care of this patient today ____ minutes.
--- NOTE | 2025-06-28 12:56 | HO.ANESPROP2 ---
[facility] Active Problems Active Problems: All Active Problems (Updated 12/26/23 @ 11:18 by Moira Lang MD) Family history of diabetes mellitus (Acute) Migraine headache (Acute) Nausea (Acute) Iron deficiency anemia (Acute) Constipation (Acute) Upper abdominal pain (Acute) Dysuria (Acute) Asthma (Acute) Gastroparesis (Acute) GERD without esophagitis (Acute) Anxiety (Acute) Depression (Acute) Environmental allergies (Acute) Past Medical History Medical History Hx of flexible sigmoidoscopy Gastroparesis GERD without esophagitis Anxiety Depression Environmental allergies Asthma Functional capacity: independent ambulation Patient : No Family History Family History Father Alive and well Mother Alive and well Paternal Uncle Esophageal and gastric varices Esophageal cancer Family history of problems with anesthesia: No Surgical History Surgical History Hx of colonoscopy Hx of breast biopsy Hx of breast reconstruction Hx of esophagogastroduodenoscopy History of Problems with Anesthesia: No Social History Social History Household Members: Family Alcohol intake: never Patient Tobacco Use Status: Never used Tobacco Have you been hit, kicked, punched, or otherwise hurt by someone within the past year? If so, by whom?: No Are you DNR?: No Advance Directives: No Advance Directives Information Provided: Yes Patient : No Current occupational status: unemployed Meds Allergies Allergy/AdvReac Type Severity Reaction Status Date / Time Sulfa (Sulfonamide Allergy Unknown muscle Verified 05/27/25 08:15 Antibiotics) aches, dizziness, high fever Active Medications: Current Medications Lactated Ringer's (Lr) 1,000 mls @ 100 mls/hr IVCONT .Q10H RAFITA Last Admin: 06/28/25 12:06 Dose: 100 mls/hr Home Medications ?Medication ?Instructions ?Recorded ?Confirmed ?Last Taken ?Type benztropine 0.5 mg tablet 0.5 mg PO DAILY 09/26/20 06/24/25 Unknown History clonidine HCl 0.1 mg tablet 0.1 mg PO BEDTIME 09/26/20 06/24/25 Unknown History quetiapine 400 mg tablet,extended 400 mg PO QPM 09/26/20 06/24/25 Unknown History release 24 hr (Seroquel XR) hydroxyzine HCl 10 mg tablet 5 - 10 mg PO DAILY PRN Anxiety 12/26/23 06/24/25 Unknown History sennosides 8.6 mg-docusate sodium 2 tab PO BEDTIME 12/26/23 06/24/25 Unknown History 50 mg tablet (Stimulant Laxative Plus) Exam Height,Weight and Vital Signs: Height 5 ft 6 in Weight 73.936 kg Last Vital Signs Temp 98.5 F 06/28/25 11:44 Pulse 94 06/28/25 11:44 Resp 16 06/28/25 11:44 BP 113/78 06/28/25 11:44 Pulse Ox 98 06/28/25 11:44 O2 Del Method Room Air 06/28/25 11:44 Pertinent Lab Results Pertinent Lab Results: Laboratory Tests 06/28/25 11:45 Urine Test NEGATIVE Airway Mallampati Class: II TM Dist: >3cm Neck ROM: Full Heart: RRR Lungs: CTA Assessment and Plan Assessment Anesthesia Assessment: Anesthesia Plan Discussed Final Anesthetic Review Family History of Problems with Anesthesia: No History of Problems with Anesthesia: No ASA Class: II Final Preanesthetic Review: Meds/Allgs Chart Reviewed, Consent Obtained/Reviewed and Anes Risks/Benef Reviewed Patient Risk: Low Procedure Risk: Low Anesthetic Plan Anesthetic Plan: MAC:
--- NOTE | 2025-06-28 13:18 | P.OP_ITS ---
Operative Note Operative Note Date of Service: 06/28/25 Narrative: FLEXIBLE TRANSORAL UPPER GASTROINTESTINAL ENDOSCOPY WITH BIOPSIES, PYLORIC BOTOX INJECTION AND BALLOON DILATION OF THE DISTAL ESOPHAGUS AND PYLORUS Pre-op diagnosis: Gastroparesis, Epigastric pain, Dysphagia Post-op diagnosis: Same Endoscopist:? Moira Lang MD Anesthesia:?MAC UPPER ENDOSCOPY Consent: Indications for the procedure and potential complications of bleeding, perforation, reaction to medications and missed diagnosis were discussed with the patient and informed consent was obtained. Instrument: Olympus GIF H 190 mid size upper endoscope Monitoring: Vital signs and clinical assessment, continuous EKG monitoring, Pulse oximetry, Carbon Dioxide monitoring and blood pressure monitoring were done throughout the procedure. Procedure: The patient was placed in the left lateral decubitis position and pre-procedure medications were administered and a bite block was placed. The endoscope was inserted into the mouth and advanced under direct vision to the third part of duodenum. A careful inspection was made as the upper endoscope was withdrawn including a retroflexed examination of the proximal stomach; Findings and interventions are described below. Findings: Larynx: Normal Esophagus: GE junction at 34 cms. Tortuous esophagus without stricture or ring. No esophagitis or Carey's. Esophageal balloon dilation of LES was performed with a 20 mm (60 F) CRE balloon x 60 seconds. Stomach: No residual food in the stomach (pt stated she only took 2 mozarella sticks yesterday since she was not feeling too well) Mild gastric erythema. Biopsies obtained.. Balloon dilation of pylorus was performed with a 20 mm CRE balloon x 60 seconds. Botox 100 Units was injected in the pyloric sphincter (25 units in each quadra nt) Grade 2 flap valve on retroflexed examination of the cardia. Duodenum: Normal bulb and descending duodenum. Intervention: Biopsies as noted above Impression and Post Procedure Diagnosis: Endoscopy Findings: ESOPHAGUS: Tortuous esophagus without stricture or ring - empiric esophageal balloon dilation of LES was performed with a 20 mm (60 F) CRE balloon x 60 seconds. STOMACH: Balloon dilation of pylorus was performed with a 20 mm CRE balloon x 60 seconds. Botox 100 Units was injected in the pyloric sphincter (25 units in each quadrant) DUODENUM: Normal Plan: Pt has a FU appointment on 09/09/[address] Lang. Above findings were reviewed with the patient and relevant handouts were given and the discharge area. BIOPSIES SHOWED: A. Small bowel, biopsy: Small intestinal mucosa within normal limits. B. Stomach, antrum, biopsy: Antral-type mucosa with mild chronic inactive inflammation; no Helicobacter organisms seen. Pt called to review biopsy and gastric emptying study results and unable to contact the patient due to calling restrictions
[2025-06-28 13:46] VITALS: BP 132/71; PULSE 103; RESP 16; TEMP 36.4; O2SAT 98
--- NOTE | 2025-06-28 13:46 | HO.ANESPROP2 ---
[facility] Active Problems Active Problems: All Active Problems (Updated 12/26/23 @ 11:18 by Moira Lang MD) Family history of diabetes mellitus (Acute) Migraine headache (Acute) Nausea (Acute) Iron deficiency anemia (Acute) Constipation (Acute) Upper abdominal pain (Acute) Dysuria (Acute) Asthma (Acute) Gastroparesis (Acute) GERD without esophagitis (Acute) Anxiety (Acute) Depression (Acute) Environmental allergies (Acute) Past Medical History Medical History Hx of flexible sigmoidoscopy Gastroparesis GERD without esophagitis Anxiety Depression Environmental allergies Asthma Functional capacity: independent ambulation Family History Family History Father Alive and well Mother Alive and well Paternal Uncle Esophageal and gastric varices Esophageal cancer Family history of problems with anesthesia: No Surgical History Surgical History Hx of colonoscopy Hx of breast biopsy Hx of breast reconstruction Hx of esophagogastroduodenoscopy History of Problems with Anesthesia: No Social History Social History Household Members: Family Alcohol intake: never Patient Tobacco Use Status: Never used Tobacco Have you been hit, kicked, punched, or otherwise hurt by someone within the past year? If so, by whom?: No Are you DNR?: No Advance Directives: No Advance Directives Information Provided: Yes Patient : No Current occupational status: unemployed Meds Allergies Allergy/AdvReac Type Severity Reaction Status Date / Time Sulfa (Sulfonamide Allergy Unknown muscle Verified 05/27/25 08:15 Antibiotics) aches, dizziness, high fever Active Medications: Current Medications Lactated Ringer's (Lr) 1,000 mls @ 100 mls/hr IVCONT .Q10H RAFITA Last Admin: 06/28/25 12:06 Dose: 100 mls/hr Naloxone HCl (Naloxone Hcl 0.4 Mg/Ml Vial) 0.04 mg IVPUSH Q5M PRN PRN Reason: Excessive sedation or RR < 8 Home Medications ?Medication ?Instructions ?Recorded ?Confirmed ?Last Taken ?Type benztropine 0.5 mg tablet 0.5 mg PO DAILY 09/26/20 06/24/25 Unknown History clonidine HCl 0.1 mg tablet 0.1 mg PO BEDTIME 09/26/20 06/24/25 Unknown History quetiapine 400 mg tablet,extended 400 mg PO QPM 09/26/20 06/24/25 Unknown History release 24 hr (Seroquel XR) hydroxyzine HCl 10 mg tablet 5 - 10 mg PO DAILY PRN Anxiety 12/26/23 06/24/25 Unknown History sennosides 8.6 mg-docusate sodium 2 tab PO BEDTIME 12/26/23 06/24/25 Unknown History 50 mg tablet (Stimulant Laxative Plus) Exam Height,Weight and Vital Signs: Height 5 ft 6 in Weight 73.936 kg Last Vital Signs Temp 98.5 F 06/28/25 11:44 Pulse 94 06/28/25 11:44 Resp 16 06/28/25 11:44 BP 113/78 06/28/25 11:44 Pulse Ox 98 06/28/25 11:44 O2 Del Method Room Air 06/28/25 11:44 Pertinent Lab Results Pertinent Lab Results: Laboratory Tests 06/28/25 11:45 Urine Test NEGATIVE Airway Mallampati Class: II TM Dist: >3cm Neck ROM: Full Heart: RRR Lungs: CTA Assessment and Plan Assessment Anesthesia Assessment: Anesthesia Plan Discussed Final Anesthetic Review Family History of Problems with Anesthesia: No History of Problems with Anesthesia: No ASA Class: II Final Preanesthetic Review: Meds/Allgs Chart Reviewed, Consent Obtained/Reviewed and Anes Risks/Benef Reviewed Patient Risk: Intermediate Procedure Risk: Low Anesthetic Plan Anesthetic Plan: GA Disposition: Standard PACU
--- NOTE | 2025-06-28 13:57 | HO.POSTANES ---
Post Anesthesia Evaluation Post Anesthesia Evaluation Date of Service: 06/28/25 Vital Signs: Vital Signs Temp Pulse Resp BP Pulse Ox O2 Del Method O2 Flow Rate 06/28/25 13:46 97.5 F 103 H 16 132/71 98 Simple Mask 6 06/28/25 11:44 98.5 F 94 16 113/78 98 Room Air Anesthesia: General Endotracheal-GETA Mental Status: Awake Pain Control: Satisfactory Nausea/Vomiting: None Hydration: Adequate Anesthesia-Related Issues: No Anes. Related Issues
[2025-06-28 14:00] VITALS: BP 131/76; PULSE 94; RESP 16; O2SAT 98
[2025-06-28 14:15] VITALS: BP 124/74; PULSE 92; RESP 16; O2SAT 96
== END 2025-06-28 14:47 | disposition home or self-care (01) ==
PROVIDERS: Nurse Practitioner; PCP Internal Medicine; Visit Provider Internal Medicine Gastroenterology
PROC: (CPT 43249; principal; 2025-06-28 13:10)
DX: K31.84 Gastroparesis (principal); K29.70 Gastritis, unspecified, without bleeding; K22.89 Other specified disease of esophagus; R10.13 Epigastric pain; R13.10 Dysphagia, unspecified; K21.9 Gastro-esophageal reflux disease without esophagitis; K59.00 Constipation, unspecified; J45.909 Unspecified asthma, uncomplicated; F41.9 Anxiety disorder, unspecified; F32.A Depression, unspecified; Z79.899 Other long term (current) drug therapy; Z88.2 Allergy status to sulfonamides; Z98.890 Other specified postprocedural states; Z56.0 Unemployment, unspecified
CPT/HCPCS: 43249; 43245; 43239; 43236; 81025; 88305; 88313; 88342; C1726; J0330; J0585; J2003; J2405; J2704

== ENCOUNTER → 2025-06-28 11:40 | Outpatient (BNV) | payer MEDICAID, SELFPAY | PROVIDERS: PCP Internal Medicine; Visit Provider Internal Medicine Gastroenterology | DX: K22.89 Other specified disease of esophagus (principal); K31.84 Gastroparesis; R13.10 Dysphagia, unspecified; R10.13 Epigastric pain | CPT/HCPCS: 43236; 43239; 43249 ==

== ENCOUNTER → 2025-07-01 08:22 | Outpatient (REF) | payer MEDICAID, SELFPAY ==
--- NOTE | ~2025-07-01 | NM_ITS ---
EXAMINATION: PA RADIONUCLIDE SOLID FOOD GASTRIC EMPTYING 4-HOUR STUDY CLINICAL INFORMATION: K31.84 - Gastroparesis COMPARISON: There are no prior studies available for comparison. TECHNIQUE: A standard meal consisting of 4 oz of Egg Beaters brand tagged with 1.0 mCi Tc-99m Sulfur Colloid, 6 oz water and 2 slices of toast with jelly was administered orally to the patient. Images were obtained using a dual head gamma camera in the anterior and posterior projections over of the stomach immediately post ingestion and at hourly intervals up to 4 hours post ingestion. The anterior and posterior counts at each time interval were averaged using the geometric mean and expressed as percentage of the immediate post ingestion counts. FINDINGS: There is visualization of activity in the stomach immediately post ingestion. As the study progresses, there is clearance of activity from the stomach and visualization of progressively increasing small bowel activity. By the end of the study, there is almost no retention noted in the stomach. Retention in the stomach at each time interval was: 1 hour 100% (normal 37%-90%) 2 hours 95% (normal 30%-60%) 3 hours 91% 4 hours 59% (normal 0%-10%) PA/PA gastric emptying study IMPRESSION: Delayed gastric emptying. For solid meal, rapid gastric emptying is less than 30% at 60 minutes. Delayed gastric emptying criteria is more than 60% remaining at 120 minutes or more than 10% at 240 minutes. The 4-hour value is the best discriminator of a normal or abnormal result). Gastric emptying study grading per JNMT Consensus Recommendations in 2008 (https://tech.snmjournals.org/content/36/1/44) Grade 1 (mild retention): 11-20% at 4h Grade 2 (moderate retention): 21-35% at 4h Grade 3 (severe retention): 36-50% at 4h Grade 4 (very severe retention): >50% retention at 4h Electronically signed by: Magdiel Will MD 07/01/2025 01:30 PM EDT
--- OUTSIDE RECORDS SUMMARY | 2025-07-01 08:30 | XMS_ITS | Encounter Summary ---
Author Organization [employer] Address [address] [place] [address] Care Team Providers Care Enterprise Systems Manager Name Role Phone Vannessa Sorto MD Primary Care Provider [phone]- [phone] Encounter Details Date Type Department Care Team (Latest Contact Info) Description 05/04/2019 Abstract [facility] CONVERSIONS Dental, Provider, DDS Social History Tobacco [...] on filedocumented in this encounter Care Teams Enterprise Systems Manager Relationship Specialty Start Date End Date Vannessa Sorto MD [address] [place] [address] PCP - General Internal Medicine 12/07/11 documented as of this encounter
== END ==
LOC: HO.NUCMED 08:22
PROVIDERS: PCP Internal Medicine; Visit Provider Internal Medicine Gastroenterology
DX: K31.84 Gastroparesis (principal)
CPT/HCPCS: 78264; A9541

== ENCOUNTER → 2025-07-01 08:25 | Outpatient (BNV) | payer MEDICAID, SELFPAY | PROVIDERS: PCP Internal Medicine; Visit Provider Radiology Diagnostic Radiology | DX: K31.84 Gastroparesis (principal) | CPT/HCPCS: 78264 ==

== ENCOUNTER 2025-09-09 10:43 | Outpatient (AMB) | payer MEDICAID, SELFPAY ==
--- NOTE | 2025-09-09 10:55 | A.OFFVIS_ITS ---
Vital Signs 09/09/25 10:57 Height 5 ft 6 in Weight 166 lb BMI 26.8 BP 103/67 Blood Pressure Location Lt brachial Position Sitting Pulse 106 H Pulse Oximetry (%) 98 Oxygen Delivery Method Room Air Intake Visit Reasons: s/p EGD Intake Note: Patient follow up for Constipation and lab, GES and EGD results Patient cc: acid reflux on and off, feelong sensaion of food coming up and down on and off. 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 Accompanied by: Self / Same As Patient Allergies Sulfa (Sulfonamide Antibiotics) Allergy (Unknown, Verified 09/09/25 10:55) muscle aches, dizziness, high fever Medication List - Last Reconciled 09/09/25 by Moira Lang MD benztropine 0.5 mg PO DAILY cholecalciferol (vitamin D3) 250 mcg PO 2XW 90 days clonidine HCl 0.1 mg PO BEDTIME hydroxyzine HCl 5 - 10 mg PO DAILY PRN metoclopramide HCl 5 mg PO BID ondansetron 4 mg PO Q8H PRN 30 days pantoprazole 40 mg PO BID quetiapine ER (Seroquel XR) 400 mg PO QPM sennosides-docusate sodium 8.6-50 mg (Stimulant Laxative Plus) 2 tabs PO BEDTIME sumatriptan succinate (Imitrex) 25 mg PO Q2-4H PRN 60 days HPI HPI s/p EGD: Details: GI clinic visit for this 34 YF for FU of GERD, gastroparesis and colon polyps. Pt is a special needs person. CHRONIC ILLNESSES:?asthma, gastroesophageal reflux disease (GERD), environmental allergies, depression, anxiety TODAY'S VISIT Patient complains of acid reflux on and off, sensation of food coming up and down on and off. Notes improvement in symptoms after EGD Takes two meals a day - breakfast (oatmeal) and dinner (chicken, steak, beef with potatoes) Usually does not eat lunch - or takes a banana Does not feel hungry Feels dizzy after doing her streches in the morning and advised to drink more fluids Has dinner at 7:30 or 8:30 pm and goes to bed at 9:30 pm (feels sleepy due to medications) and advised to have dinner at 6:30 pm and eat a blenderized diet for dinner PAST VISITS: Saw [place]vic [place] [facility] [place] told pelvic muscles were too tight and symptoms are improving with PT. Drinks liquids to stay hydrated. Has been burping up her food and feeling full fast - has not been eating her dinner well. EGD results were reviewed with the patient. Notes improvement in dysphagia and early satiety. She was constipated yesterday - took Linzess and Dulcolax and had diarrhea and vomiting. Advised to take Linzess every other day (gets diarrhea if she takes it daily) PAST VISIT: Patient cc: swallowing difficulty with solid food. Denies any other G issue for today. 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 Has been eating less Notes pressure in the chest and takes a while for the food to pass down in the stomach Denies regurgitation. Unable to swallow sandwiches Taking Linzess a few times a week which is helping with constipation. Taking small meals. BMs are hard and painful Still has hemorrhoids Planning to try apple cider vinegar with honey for constipation. Patient cc: nauseas, constipation, burping/gassy, and some acid reflex with food coming out her throat. She is making herself eat but something still does not feel right. Had COVID during tono vacation and had severe stomach ache, nausea, vomiting and diarrhea Has had chronic nausea ever since and trying to make herself eat. Has constipation since she does not drink enough fluids. Feels hungry all the time and has been snacking on carbs Has been gaining weight PFSH Medical History Hx of flexible sigmoidoscopy Gastroparesis GERD without esophagitis Anxiety Depression Environmental allergies Asthma Surgical History Hx of colonoscopy Hx of breast biopsy Hx of breast reconstruction Hx of esophagogastroduodenoscopy Family History Father Alive and well Mother Alive and well Paternal Uncle Esophageal and gastric varices Esophageal cancer Social History Household Members: Family Alcohol intake: never Patient Tobacco Use Status: Never used Tobacco Current occupational status: unemployed Review of Systems Const All systems reviewed & are unremarkable except as noted in HPI and below Physical Exam Vital Signs: Last Vital Signs Pulse 106 H 09/09/25 10:57 BP 103/67 10/09/25 10:57 Pulse Ox 98 09/09/25 10:57 Oxygen Delivery Method Room Air 09/09/25 10:57 BMI result Body Mass Index 26.8 Const General: healthy appearing and no acute distress Nutritional Appearance: overweight Orientation/consciousness: patient oriented x3 Limitations: other limitations (Patient is a special needs person) HEENT Head: Yes normal to inspection Ears: hearing grossly normal bilaterally Eyes Sclerae: sclerae normal Pupils: Equal, round and reactive pupils present Neck Neck: Yes normal visual inspection Chest Chest palpation & inspection: normal inspection of the chest Resp Effort & Inspection: normal respiratory effort Auscultation: clear to auscultation bilaterally Cardio Palpation: normal PMI Rate: regular rate Rhythm: regular rhythm Heart sounds: S1 normal heart sound present, S2 normal heart sound present and no murmurs GI Palpation (GI): Soft to palpation, nontender and No hepatosplenomegaly present Auscultation: normal bowel sounds Rectal Exam - Female: deferred Skin General skin exam: no rashes or lesions noted Neuro General: patient oriented x3, gait normal and moves all extremities Cranial nerves: Yes Equal, round and reactive pupils present Psych Appearance: grossly normal Mental Status: mental status grossly normal Assessment & Plan Assessment & Plan (1) GERD without esophagitis: Code(s): K21.9 - Gastro-esophageal reflux disease without esophagitis Category: Medical (2) Nausea: Code(s): R11.0 - Nausea Category: Medical (3) Gastroparesis: Code(s): K31.84 - Gastroparesis Category: Medical (4) Constipation: Code(s): K59.00 - Constipation, unspecified Category: Medical (5) Upper abdominal pain: Code(s): R10.10 - Upper abdominal pain, unspecified Category: Medical Plan 34 YF with special needs, asthma, gastroesophageal reflux disease (GERD), environmental allergies, depression, anxiety followed in GI for symptoms of heartburn, early satiety and intermittent postprandial regurgitation. 12/24/19 EGD showed gastritis with a tight pylorus which was dilated with an 18 mm balloon. Small bowel and esophageal biopsies were normal. Gastric biopsies were negative for H pylori. Patient notes partial improvement in her symptoms since EGD with balloon dilation of pylorus was performed. Gastric emptying study showed Gastroparesis: (03/2020 GES showed 68% retention at 4 hours) Patient was advised to switch omeprazole from bedtime to 20-30 minutes before breakfast and take 5-6 small meals a day in the interim. Continue Metoclopramide 5 mg twice daily before lunch and dinner. Patient handout on gastroparesis was mailed to the patient with her after visit summary at the time of a previous visit. Pt noted increased symptoms after Thanksgiving which have improved. 11/22/22 Pt complains of intermittent upper abdominal pain. She was advised further evaluation with an abd US 03/2023 EGD with pyloric Botox injection and repeat balloon dilation was performed. (OF note - pt reports getting hungry a lot and has been eating) Same day flexible sigmoidoscopy showed adenomatous appearing polyps in the left colon (Of note stool FIT test was negative in 01/2023). To take Linzess 145 mcg every other day for constipation 07/2023 colonoscopy was performed and findings as noted above 08/01/23 Pt stopped Linzess due to diarrhea - prescribed a lower dose of 72 mcg daily Prescribed low dose Imitrex for migraine HAs 12/26/23 Had COVID during tono vacation and had severe stomach ache, nausea, vomiting and diarrhea Has had chronic nausea ever since and trying to make herself eat and prescribed ondansetron p.r.n. for nausea Has constipation since she does not drink enough fluids. Feels hungry all the time and has been snacking on carbs Has been gaining weight 05/07/24 BMs are hard and painful Still has hemorrhoids Planning to try apple cider vinegar with honey for constipation Pt advised to: 1. Start taking Linzess (Linaclotide) every other day 2. Start Pantoprazole for GERD instead of Omeprazole (If approved by her insurance). 10/01/24 Having trouble swallowing - mostly solids. Has been eating less Notes pressure in the chest and takes a while for the food to pass down in the stomach 10/02/24 EGD with balloon dilation and pyloric botox injection was performed 10/16/24 EGD results were reviewed with the patient. Notes improvement in dysphagia and early satiety. She was constipated yesterday - took Linzess and Dulcolax and had diarrhea and vomiting. Advised to take Linzess every other day (gets diarrhea if she takes it daily) 05/27/25 Has been burping up her food and feeling full fast Constipation is improving with pelvic floor therapy. Patient advised to schedule an upper endoscopy with Botox injection and pyloric balloon dilation. Schedule a GES to FU on Gastroparesis (last GES was performed in 2019) 03/31/20 GASTRIC EMPTYING STUDY SHOWED: ? FINDINGS: ? 1 hour 98% (normal 37%-90%) ? 2 hours 94% (normal 30%-60%) ? 3 hours 76% ? 4 hours 68% (normal 0%-10%) 07/01/25 GASTRIC EMPTYING STUDY SHOWED: 1 hour 100% (normal 37%-90%) 2 hours 95% (normal 30%-60%) 3 hours 91% 4 hours 59% (normal 0%-10%) IMPRESSION: Delayed gastric emptying. 09/09/25 Has dinner at 7:30 or 8:30 pm and goes to bed at 9:30 pm (feels sleepy due to medications) and advised to have dinner at 6:30 pm and eat a blenderized diet for dinner Increase Metoclopramide to 10 mg twice daily - 30 minutes before breakfast and dinner Option for placement of Gastric Electrical Stimulator was reviewed - will hold off for now since patient is maintaining her weight. Follow-up appointment in 4 months Medications: New metoclopramide HCl 10 mg PO BIDWMEAL 180 tabs 1RF nausea and vomiting 90 days K3.84 - Gastroparesis Changed From metoclopramide HCl 5 mg PO BID 180 tabs 0RF K31.84 - Gastroparesis To metoclopramide HCl 5 mg PO TIDWMEAL 270 tabs 1RF 90 days K3.84 - Gastroparesis Coding Level of Care Code Est Pt Level 4 (25853) Diagnoses GERD without esophagitis K21.9 Nausea R11.0 Gastroparesis K31.84 Constipation K59.00 Upper abdominal pain R10.10 Time Spent (min) 22
[2025-09-09 10:57] VITALS: BP 103/67; PULSE 106; O2SAT 98; BMI 26.8
== END 2025-09-09 11:36 | disposition home or self-care (01) ==
LOC: HO.HGI 10:44
PROVIDERS: PCP Internal Medicine; Visit Provider Internal Medicine Gastroenterology
DX: K21.9 Gastro-esophageal reflux disease without esophagitis (principal); R11.0 Nausea; K31.84 Gastroparesis; K59.00 Constipation, unspecified; R10.10 Upper abdominal pain, unspecified
CPT/HCPCS: 99214

== ENCOUNTER → 2025-09-09 10:43 | Outpatient (BNVA) | payer MEDICAID, SELFPAY | PROVIDERS: PCP Internal Medicine; Visit Provider Internal Medicine Gastroenterology | DX: K21.9 Gastro-esophageal reflux disease without esophagitis (principal); K31.84 Gastroparesis; K59.00 Constipation, unspecified; R11.0 Nausea; R10.10 Upper abdominal pain, unspecified | CPT/HCPCS: 99212 ==